=== PATIENT | female | born 1990 | race Caucasian/White ===

== ENCOUNTER 2016-06-13 17:31 | Inpatient (IN) | payer BC, OTHER ==
[2016-06-13 19:07] LABS: APPEARANCE,URINE SLIGHTLY-CLOUDY; BILIRUBIN,URINE NEGATIVE (NEGATIVE); GLUCOSE, URINE NEGATIVE (NEGATIVE); KETONES,URINE TRACE mg/dL (NEGATIVE); LEUKOCYTE ESTERASE,URINE NEGATIVE (NEGATIVE); NITRITE,URINE NEGATIVE (NEGATIVE); PROTEIN,URINE NEGATIVE (NEGATIVE); URINE SPECIFIC GRAVITY 1.015; UROBILINOGEN,URINE NEGATIVE mg/dL (<2.0)
[2016-06-13 19:15] LABS: ABSOLUTE EOSINOPHILS # (AUTO) 0.1 10^3/uL (0.0-0.6); ABSOLUTE LYMPHOCYTES (AUTO) 1.9 10^3/uL (0.5-4.7); ABSOLUTE MONOCYTES (AUTO) 0.9 10^3/uL (0.1-1.4); ABSOLUTE NEUT (AUTO) 11.5 10^3/uL (1.7-8.2); BASOPHILS % (AUTO) 0.2 % (0-2); HEMATOCRIT 38.6 % (36.0-47.0); HEMOGLOBIN 12.9 g/dL (12.0-15.5); HGB HCT DIFFERENCE 0.1; LYMPHOCYTES % (AUTO) 13.3 % (13-45); MEAN CORPUSCULAR HEMOGLOBIN 31.9 pg (27.0-33.4); MEAN CORPUSCULAR HGB CONC 33.4 g/dL (32.0-36.0); MEAN CORPUSCULAR VOLUME 96 fl (80-97); RED BLOOD COUNT 4.04 10^6/uL (3.72-5.28); RED CELL DISTRIBUTION WIDTH 13.6 % (11.5-14.0); SEGMENTED NEUTROPHILS % (AUTO) 79.5 % (42-78); WHITE BLOOD COUNT 14.5 10^3/uL (4.0-10.5)
[2016-06-13 19:31] LABS: URINE BARBITURATES SCREEN NEGATIVE; URINE METHADONE SCREEN NEGATIVE; URINE OPIATES LOW NEGATIVE; URINE PHENCYCLIDINE SCREEN NEGATIVE
[2016-06-13] MEDS ORDERED: DINOPROSTONE 10 MG VAGINAL INSERT.SR ONE (19:41)
--- NOTE | 2016-06-13 20:00 | L&D Flow Sheet ---
LD Flowsheet Datetime Report Generated by CPN: 06/13/2016 20:00 Datetime: 06/13/2016 19:51 NBP Sys/Teresa/Mean (mmHg): 114 (QS system process) : 67 (QS system process) : 85 (QS system process) Pulse: 86 (QS system process) Monitor Interventions for FHR: Ultrasound Adjusted (Christine Henderson, RN) Datetime: 06/13/2016 19:50 Cervical Ripening Agents: Cervidil (Christine CHAPARRITA Henderson) Datetime: 06/13/2016 19:46 I/O Interventions: Up to BR (Christine Henderson RN) Datetime: 06/13/2016 19:00 Pain Scale: 0 (Christine Henderson RN) Pain Presence: None/Denies (Christine Henderson RN) Pain Type: N/A (Christine Henderson RN) Vaginal Bleeding: None (Christine Henderson RN) Level of Consciousness: Fully Conscious (Christine Henderson RN) DTR's/Clonus: DTRs 2+; No Clonus (Christine Henderson RN) Headache: Denies (Christine Henderson RN) Breath Sounds, Left: Clear and Equal (Christine Henderson RN) Breath Sounds, Right: Clear and Equal (Christine Henderson RN) Nausea/Vomiting: Denies (Christine Henderson RN) RUQ Epigastric Pain: Denies (Christine Henderson RN) Datetime: 06/13/2016 18:56 Monitor Interventions for UA: [place] Adjusted (Christine Henderson RN) Communication: Provider Orders Received (Christine Henderson RN) Communication Comments: Orders received to place Cervidil tonight followed by Pitocin and a mike bulb in the morning. (Christine Henderson RN) Datetime: 06/13/2016 18:55 Dilatation (cm): 1.0 (Christine Henderson RN) Effacement (%): 0 (Christine Henderson RN) Station: -3 (Christine Henderson RN) Exam by: Dr. Roger (Christine Henderson RN) Cervix, Position: Posterior (Christine Henderson RN) Datetime: 06/13/2016 18:39 IV/Blood Work: Labs Drawn (Christine Henderson, RN) Datetime: 06/13/2016 18:34 Patient Position/Activity: Left Tilt; Semi-Fowlers (Christine Henderson RN)
[2016-06-13] MEDS ORDERED: RINGERS SOLUTION,LACTATED 300 ML IV ONE (20:08)
[2016-06-13] MEDS ORDERED: OXYTOCIN/NORMAL SALINE 1,000 ML IV PRN (20:08)
[2016-06-13] MEDS ORDERED: DINOPROSTONE 10 MG VAGINAL INSERT.SR PV PRN (20:08)
--- NOTE | 2016-06-13 22:00 | L&D Flow Sheet ---
LD Flowsheet Datetime Report Generated by CPN: 06/13/2016 22:00 Datetime: 06/13/2016 21:00 Monitor Mode: External (Christine Marlatt, RN) Frequency (min): irritability (Christine Marlatt, RN) Quality: Mild (Christine Marlatt, RN) Resting Tone (Palpate): Relaxed (Christine Marlatt, RN) Monitor Mode: External US (Christine Marlatt, RN) FHR Baseline Rate : 145 (Christine Marlatt, RN) Variability: Moderate 6-25 bpm (Christine Marlatt, RN) Accelerations: 15X15 (Christine Marlatt, RN) Datetime: 06/13/2016 20:30 Monitor Mode: External (Christine Marlatt, RN) Frequency (min): x1 (Christine Marlatt, RN) Quality: Mild (Christine Marlatt, RN) Duration (sec): 60 (Christine Marlatt, RN) Resting Tone (Palpate): Relaxed (Christine Marlatt, RN) Monitor Mode: External US (Christine Marlatt, RN) FHR Baseline Rate : 140 (Christine Marlatt, RN) Variability: Moderate 6-25 bpm (Christine Marlatt, RN) Accelerations: 15X15 (Christine Marlatt, RN) Datetime: 06/13/2016 20:00 Monitor Mode: External (Christine Marlatt, RN) Frequency (min): 0 (Christine Marlatt, RN) Resting Tone (Palpate): Relaxed (Christine Marlatt, RN) Monitor Mode: External US (Christine Marlatt, RN) FHR Baseline Rate : 140 (Christine Marlatt, RN) Variability: Moderate 6-25 bpm (Christine Marlatt, RN) Accelerations: 15X15 (Christine Marlatt, RN) Decelerations: None (Christine Marlatt, RN)
[2016-06-13] MEDS ORDERED: ZOLPIDEM TARTRATE 5 MG TABLET ONE (22:53)
[2016-06-14] MEDS: RINGERS SOLUTION,LACTATED 1,000 ML IV PRN ×2 (03:53→16:07)
[2016-06-14] MEDS ORDERED: MISOPROSTOL 0.1 MG TABLET ONE ×2 (07:38→10:09)
--- NOTE | 2016-06-14 08:00 | L&D Flow Sheet ---
LD Flowsheet Datetime Report Generated by CPN: 06/14/2016 08:00 Datetime: 06/14/2016 07:22 Level of Consciousness: Fully Conscious (Arsalan Mathew, SN) DTR's/Clonus: DTRs 1+; No Clonus (Arsalan Mathew, SN) Headache: Denies (Arsalan Mathew, SN) Breath Sounds, Right: Clear and Equal (Arsalan Mathew, SN) Nausea/Vomiting: Denies (Arsalan Mathew, SN) RUQ Epigastric Pain: Denies (Arsalan Mathew, SN) Datetime: 06/14/2016 07:07 Communication Comments: Report received from Braulio Astorga RN. Care assumed (Armida Lims, RN) Datetime: 06/14/2016 07:06 Communication: Report Given to @ LyndaBrent, RN; care relinquished at this time. (Cesia Astorga, RN) Datetime: 06/14/2016 07:00 Monitor Mode: External; Palpation (Cesia Astorga, RN) Frequency (min): Irritability (Cesia Astorga, RN) Quality: Mild (Cesia Astorga, RN) Resting Tone (Palpate): Relaxed (Cesia Astorga, RN) Monitor Mode: External US (Cesia Astorga, RN) FHR Baseline Rate : 135 (Cesia Astorga, RN) Variability: Moderate 6-25 bpm (Cesia Astorga, RN) Accelerations: 15X15 (Cesia , RN) Decelerations: None (Cesia Astorga, RN) Datetime: 06/14/2016 06:43 I/O Interventions: Up to BR (Cesia Field, RN) Datetime: 06/14/2016 06:30 Monitor Mode: External; Palpation ([facility], ) Frequency (min): Irritability ([facility], RN) Quality: Mild ([facility], RN) Resting Tone (Palpate): Relaxed ([facility], RN) Monitor Mode: External US ([facility], RN) FHR Baseline Rate : 130 ([facility], RN) Variability: Moderate 6-25 bpm ([facility], RN) Accelerations: 15X15 ([facility], RN) Decelerations: None ([facility], RN) Datetime: 06/14/2016 06:01 Monitor Mode: External US (Bella Kossmann, RN) FHR Baseline Rate : 135 (Bella Kossmann, RN) Variability: Moderate 6-25 bpm (Bella Kossmann, RN) Accelerations: 15X15 (Bella Kossmann, RN) Decelerations: None (Bella Kossmann, RN) Datetime: 06/14/2016 05:30 Monitor Mode: External; Palpation (Bella Kossmann, RN) Frequency (min): x1 (Bella Kossmann, RN) Quality: Mild (Bella Kossmann, RN) Duration (sec): 60 (Bella Kossmann, RN) Resting Tone (Palpate): Relaxed (Bella Kossmann, RN) Monitor Mode: External US (Bella Kossmann, RN) FHR Baseline Rate : 130 (Bella Kossmann, RN) Variability: Moderate 6-25 bpm (Bella Kossmann, RN) Accelerations: 15X15 (Bella Kossmann, RN) Decelerations: None (Bella Kossmann, RN) Datetime: 06/14/2016 05:00 Monitor Mode: External; Palpation (Cesia Field, RN) Frequency (min): Irritability (Cesia Field, RN) Quality: Mild (Cesia Field, RN) Resting Tone (Palpate): Relaxed (Cesia Field, RN) Monitor Mode: External US (Cesia Field, RN) FHR Baseline Rate : 130 (Cesia Field, RN) Variability: Moderate 6-25 bpm (Cesia Field, RN) Accelerations: 15X15 (Cesia Field, RN) Decelerations: None (Cesia Field, RN) Datetime: 06/14/2016 04:30 Monitor Mode: External; Palpation (Cesia Field, RN) Frequency (min): Irritability (Cesia Field, RN) Quality: Mild (Cesia Field, RN) Resting Tone (Palpate): Relaxed (Cesia Field, RN) Monitor Mode: External US (Cesia Field, RN) FHR Baseline Rate : 130 (Cesia Field, RN) Variability: Moderate 6-25 bpm (Cesia Field, RN) Accelerations: 15X15 (Cesia Field, RN) Decelerations: None (Cesia Field, RN) Datetime: 06/14/2016 04:19 I/O Interventions: Up to BR ([facility], RN) Datetime: 06/14/2016 04:01 Monitor Mode: External; Palpation ([facility], ) Frequency (min): none ([facility], ) Resting Tone (Palpate): Relaxed ([facility], ) Monitor Mode: External US ([facility], ) FHR Baseline Rate : 130 ([facility], ) Variability: Moderate 6-25 bpm ([facility], ) Accelerations: 15X15 ([facility], ) Decelerations: None ([facility], ) Datetime: 06/14/2016 03:35 IV/Blood Work: New IV Bag Hung (Annotations: iv flushed with 10ml of normal saline, iv patent, no evidence of issues.) (Bella Dickinson, RN) Datetime: 06/14/2016 03:30 Monitor Mode: External; Palpation (Bella Lilianaann, RN) Frequency (min): irregular (Bella Lizzysmann, RN) Quality: Mild (Bella Kossmann, RN) Duration (sec): 40-90 (Bella Kossmann, RN) Resting Tone (Palpate): Relaxed (Bella Kossmann, RN) Monitor Mode: External US (Bella Kossmann, RN) FHR Baseline Rate : 135 (Bella Kossmann, RN) Variability: Moderate 6-25 bpm (Bella Kossmann, RN) Accelerations: 15X15 (Bella Kossmann, RN) Decelerations: Late (Bella Kossmann, RN) Datetime: 06/14/2016 03:25 NBP Sys/Teresa/Mean (mmHg): 122 (QS system process) : 80 (QS system process) : 96 (QS system process) Pulse: 85 (QS system process) LaborFlag: Antepartum (QS system process) Datetime: 06/14/2016 03:18 I/O Interventions: Up to BR (Cesia Astorga, RN) Datetime: 06/14/2016 03:00 Monitor Mode: External; Palpation (Cesia Astorga, RN) Frequency (min): x2 (Cesia Astorga, RN) Quality: Mild (Cesia Astorga, RN) Duration (sec): 80-90 (Cesia Astorga, RN) Resting Tone (Palpate): Relaxed (Cesia Astorga, RN) Monitor Mode: External US (Cesia Astorga, RN) FHR Baseline Rate : 135 (Cesia Astorga, RN) Variability: Moderate 6-25 bpm (Cesia , RN) Accelerations: 15X15 (Cesia Astorga, RN) Decelerations: None (Cesia Astorga, RN) Datetime: 06/14/2016 02:30 Monitor Mode: External; Palpation (Cesia Field, RN) Frequency (min): 7-18 (Cesia Field, RN) Quality: Mild (Cesia Field, RN) Duration (sec): 60-90 (Cesia Field, RN) Resting Tone (Palpate): Relaxed (Cesia Field, RN) Monitor Mode: External US (Cesia Field, RN) FHR Baseline Rate : 130 (Cesia Field, RN) Variability: Moderate 6-25 bpm (Cesia Field, RN) Accelerations: 15X15 (Cesia Field, RN) Decelerations: None (Cesia Field, RN) Datetime: 06/14/2016 02:00 Monitor Mode: External; Palpation (Cesia Field, RN) Frequency (min): x1 (Cesia Field, RN) Quality: Mild (Cesia Field, RN) Duration (sec): 80 (Cesia Field, RN) Resting Tone (Palpate): Relaxed (Cesia Field, RN) Monitor Mode: External US (Cesia Field, RN) FHR Baseline Rate : 130 (Cesia Field, RN) Variability: Moderate 6-25 bpm (Cesia Field, RN) Accelerations: 15X15 (Cesia Field, RN) Decelerations: None (Cesia Field, RN) Datetime: 06/14/2016 01:30 Monitor Mode: External; Palpation (Cesia Field, RN) Frequency (min): x1 (Cesia Field, RN) Quality: Mild (Cesia Field, RN) Duration (sec): 60 (Cesia Field, RN) Resting Tone (Palpate): Relaxed (Cesia Field, RN) Monitor Mode: External US (Cesia Field, RN) FHR Baseline Rate : 135 (Cesia Field, RN) Variability: Moderate 6-25 bpm (Cesia Field, RN) Accelerations: 15X15 (Cesia Field, RN) Decelerations: None (Cesia Field, RN) Datetime: 06/14/2016 01:00 Monitor Mode: External; Palpation (Cesia Field, RN) Frequency (min): x1 (Cesia Field, RN) Quality: Mild (Cesia Field, RN) Duration (sec): 110 (Cesia Field, RN) Resting Tone (Palpate): Relaxed (Cesia Field, RN) Monitor Mode: External US (Cesia Field, RN) FHR Baseline Rate : 135 (Cesia Field, RN) Variability: Moderate 6-25 bpm (Cesia Field, RN) Accelerations: 15X15 (Cesia Field, RN) Decelerations: None (Cesia Field, RN) Datetime: 06/14/2016 00:30 Monitor Mode: External; Palpation (Cesia Field, RN) Frequency (min): Irritability (Cesia Field, RN) Quality: Mild (Cesia Field, RN) Resting Tone (Palpate): Relaxed (Cesia Field, RN) Monitor Mode: External US (Cesia Field, RN) FHR Baseline Rate : 135 (Cesia Field, RN) Variability: Moderate 6-25 bpm (Cesia Field, RN) Accelerations: 15X15 (Cesia Field, RN) Decelerations: None (Cesia Field, RN) Datetime: 06/14/2016 00:00 Monitor Mode: External; Palpation (Cesia Field, RN) Frequency (min): Irritability (Cesia Field, RN) Quality: Mild (Cesia Field, RN) Resting Tone (Palpate): Relaxed (Cesia Field, RN) Monitor Mode: External US (Cesia Field, RN) FHR Baseline Rate : 140 (Cesia Field, RN) Variability: Moderate 6-25 bpm (Cesia Field, RN) Accelerations: 15X15 (Cesia Field, RN) Decelerations: None (Cesia Field, RN) Datetime: 06/13/2016 23:30 Monitor Mode: External; Palpation (Cesia Field, RN) Frequency (min): Irritability (Cesia Field, RN) Quality: Mild (Cesia Field, RN) Resting Tone (Palpate): Relaxed (Cesia Field, RN) Monitor Mode: External US (Cesia Field, RN) FHR Baseline Rate : 140 (Cesai Field, RN) Variability: Moderate 6-25 bpm (Cesia Field, RN) Accelerations: 15X15 (Cesia Field, RN) Decelerations: None (Cesia Field, RN) Datetime: 06/13/2016 23:10 Patient Care Comments: Agree with CHAPARRITA Yang previous assessment (Cesia Astorga RN) Datetime: 06/13/2016 23:01 I/O Interventions: Up to BR (Christine Henderson, RN) Datetime: 06/13/2016 23:00 Monitor Mode: External (Christine Henderson, RN) Frequency (min): irritability (Christine Henderson, RN) Quality: Mild (Christine Henderson RN) Resting Tone (Palpate): Relaxed (Christine Henderson RN) Monitor Mode: External US (Christine Henderson, RN) FHR Baseline Rate : 130 (Christine Henderson, RN) Variability: Moderate 6-25 bpm (Christine Henderson, RN) Accelerations: 15X15 (Christine Marlatt, RN) Datetime: 06/13/2016 22:57 Communication: Report Given to @ J. Feild RN (Christine Marlatt, RN) Datetime: 06/13/2016 22:55 Analgesics/Sedatives: Ambien (mg) @ 10 (Christine Marlatt, RN) Datetime: 06/13/2016 22:30 Monitor Mode: External (Christine Marlatt, RN) Frequency (min): irreg (Christine Marlatt, RN) Quality: Mild (Christine Marlatt, RN) Duration (sec): 60-120 (Christine Marlatt, RN) Resting Tone (Palpate): Relaxed (Christine Sarahlatt, RN) Monitor Mode: External US (Christine Sarahlatt, RN) FHR Baseline Rate : 140 (Christine Marlatt, RN) Variability: Moderate 6-25 bpm (Christine Marlatt, RN) Accelerations: 15X15 (Christine Marlatt, RN) Decelerations: None (Christine Marlatt, RN) Datetime: 06/13/2016 22:00 Monitor Mode: External (Christine Marlatt, RN) Frequency (min): irreg (Christine Marlatt, RN) Quality: Mild (Christine Marlatt, RN) Duration (sec): 40-60 (Christine Marlatt, RN) Resting Tone (Palpate): Relaxed (Christine Sarahlatt, RN) Monitor Mode: External US (Christine Sarahlatt, RN) FHR Baseline Rate : 140 (Christine Marlatt, RN) Variability: Moderate 6-25 bpm (Christine Marlatt, RN) Accelerations: 15X15 (Christine Marlatt, RN)
--- NOTE | 2016-06-14 12:00 | L&D Flow Sheet ---
LD Flowsheet Datetime Report Generated by CPN: 06/14/2016 12:00 Datetime: 06/14/2016 11:51 NBP Sys/Teresa/Mean (mmHg): 132 (QS system process) : 88 (QS system process) : 106 (QS system process) Pulse: 94 (QS system process) LaborFlag: Antepartum (QS system process) Datetime: 06/14/2016 11:31 Dilatation (cm): 1.0 (Armida Alejandra, RN) Effacement (%): 0 (Armida Alejandra, RN) Station: -1 (Armida Alejandra, RN) Exam by: Devorah Calvo,RN (Armida Alejandra, RN) Datetime: 06/14/2016 11:29 Patient Care Comments: O2 10L via nonrebreather applied. (Kasandra Calvo, RN) Datetime: 06/14/2016 11:28 Communication: RN at Bedside (Kasandra Calvo, RN) Datetime: 06/14/2016 11:23 Patient Position/Activity: Hands-Knees (Kasandra Calvo, RN) Datetime: 06/14/2016 11:22 Patient Care Comments: LR 500mL bolus started. (Kasandra Calvo, RN) Datetime: 06/14/2016 11:20 NBP Sys/Teresa/Mean (mmHg): 105 (QS system process) : 66 (QS system process) : 78 (QS system process) Pulse: 86 (QS system process) LaborFlag: Antepartum (QS system process) Datetime: 06/14/2016 11:00 Monitor Mode: External; Palpation (Armida Alejandra, RN) Frequency (min): irregular (Armida Alejandra, RN) Quality: Mild (Armida Alejandra, RN) Duration (sec): 60-80 (Armida Alejandra, RN) Resting Tone (Palpate): Relaxed (Armida Alejandra, RN) Monitor Mode: External US (Armida Alejandra, RN) FHR Baseline Rate : 140 (Armida Alejandra, RN) Variability: Moderate 6-25 bpm (Armida Alejandra, RN) Accelerations: 15X15 (Armida Alejandra, RN) Decelerations: None (Armida Alejandra, RN) Datetime: 06/14/2016 10:51 NBP Sys/Teresa/Mean (mmHg): 114 (QS system process) : 75 (QS system process) : 89 (QS system process) Pulse: 94 (QS system process) LaborFlag: Antepartum (QS system process) Datetime: 06/14/2016 10:30 Monitor Mode: External (Arsalan Rodriguesrey, SN) Frequency (min): Irregular (Arsalan Mathew, SN) Quality: Mild (Arsalan Mathew, SN) Duration (sec): 60-80 (Arsalan Mathew, SN) Resting Tone (Palpate): Relaxed (Arsalan Mathew, SN) Monitor Mode: External US (Arsalan Mathew, SN) FHR Baseline Rate : 140 (Arsalan Mathew, SN) Variability: Moderate 6-25 bpm (Arsalan Mathew, SN) Accelerations: 15X15 (Arsalan Mathew, SN) Decelerations: Variable (Arsalan Mathew, SN) Datetime: 06/14/2016 10:22 Cervical Ripening Agents: Cytotec @ 25 (Armida Roberts RN) Medication Comments: PV (Armida Roberts RN) Datetime: 06/14/2016 10:19 NBP Sys/Teresa/Mean (mmHg): 109 (QS system process) : 73 (QS system process) : 86 (QS system process) Pulse: 94 (QS system process) LaborFlag: Antepartum (QS system process)
[2016-06-14] MEDS ORDERED: TERBUTALINE SULFATE INJ/PF 1 MG/1 ML SDV ONE (12:04)
--- NOTE | 2016-06-14 14:00 | L&D Flow Sheet ---
LD Flowsheet Datetime Report Generated by CPN: 06/14/2016 14:00 Datetime: 06/14/2016 13:50 NBP Sys/Teresa/Mean (mmHg): 101 (QS system process) : 58 (QS system process) : 73 (QS system process) Pulse: 101 (QS system process) LaborFlag: Antepartum (QS system process) Datetime: 06/14/2016 13:26 Monitor Mode: External (Arsalan Mathew, SN) Frequency (min): 2-4 (Arsalan Mathew, SN) Quality: Mild (Arsalan Mathew, SN) Duration (sec): 60-80 (Arsalan Mathew, SN) Pattern: Normal: <= 5 Contractions in 10 Minutes (Arsalan Mathew, SN) Resting Tone (Palpate): Relaxed (Arsalan Mathew, SN) Monitor Mode: External US (Arsalan Mathew, SN) FHR Baseline Rate : 145 (Arsalan Mathew, SN) Variability: Moderate 6-25 bpm (Arsalan Mathew, SN) Accelerations: 15X15 (Arsalan Mathew, SN) Decelerations: None (Arsalan Mathew, SN) Datetime: 06/14/2016 13:21 NBP Sys/Teresa/Mean (mmHg): 106 (QS system process) : 54 (QS system process) : 74 (QS system process) Pulse: 106 (QS system process) LaborFlag: Antepartum (QS system process) Datetime: 06/14/2016 13:00 Monitor Mode: External; Palpation (Arsalan Mathew SN) Monitor Mode: External; Palpation (Armida Alejandra, RN) Frequency (min): irregular (Armida Alejandra, RN) Quality: Mild (Arsalan Mathew, SN) Quality: Mild (Armida Alejandra, RN) Duration (sec): 60-80 (Armida Alejandra, RN) Pattern: Normal: <= 5 Contractions in 10 Minutes (Arsalan Mathew, SN) Resting Tone (Palpate): Relaxed (Arsalan Mathew, SN) Resting Tone (Palpate): Relaxed (Armida Alejandra, RN) Monitor Mode: External US (Arsalan Mathew, SN) Monitor Mode: External US (Armida Alejandra, RN) FHR Baseline Rate : 150 (Armida Alejandra, RN) Variability: Moderate 6-25 bpm (Armida Alejandra, RN) Accelerations: 15X15 (Arsalan Mathew, SN) Decelerations: Late (Arsalan Mathew, SN) Datetime: 06/14/2016 12:50 NBP Sys/Teresa/Mean (mmHg): 107 (QS system process) : 58 (QS system process) : 78 (QS system process) Pulse: 112 (QS system process) LaborFlag: Antepartum (QS system process) Datetime: 06/14/2016 12:30 Monitor Mode: External; Palpation (Armida Alejandra, RN) Frequency (min): irregular (Armida Alejandra, RN) Quality: Mild (Armida Alejandra, RN) Duration (sec): 60-120 (Armida Alejandra, RN) Resting Tone (Palpate): Relaxed (Armida Alejanrda, RN) Monitor Mode: External US (Armida Alejandra, RN) FHR Baseline Rate : 150 (Armida Alejandra, RN) Variability: Moderate 6-25 bpm (Armida Alejandra, RN) Accelerations: 15X15 (Armida Alejandra, RN) Decelerations: Late (Armida Alejandra, RN) Datetime: 06/14/2016 12:20 NBP Sys/Teresa/Mean (mmHg): 115 (QS system process) : 63 (QS system process) : 82 (QS system process) Pulse: 123 (QS system process) LaborFlag: Antepartum (QS system process) Datetime: 06/14/2016 12:10 I/O Interventions: Up to BR (Armida Alejandra, RN) Datetime: 06/14/2016 12:07 Tocolytics: Terbutaline 0.25mg Subcutaneous-Pulse Less than 120 (Armida Alejandra, RN) Datetime: 06/14/2016 12:00 Monitor Mode: External; Palpation (Armida Alejandra, RN) Frequency (min): 2-3 (Armida Alejandra, RN) Quality: Mild (Armida Alejandra, RN) Duration (sec): 60-80 (Armida Alejandra, RN) Resting Tone (Palpate): Relaxed (Armida Alejandra, RN) Monitor Mode: External US (Armida Alejandra, RN) FHR Baseline Rate : 150 (Armida Alejandra, RN) Variability: Moderate 6-25 bpm (Armida Alejandra, RN) Accelerations: None (Armida Alejandra, RN) Decelerations: Late (Armida Alejandra, RN)
[2016-06-14] MEDS ORDERED: OXYTOCIN/NORMAL SALINE 20 UNIT/1,000 ML RTUINJ ONE (15:50)
--- NOTE | 2016-06-14 16:00 | L&D Flow Sheet ---
LD Flowsheet Datetime Report Generated by CPN: 06/14/2016 16:00 Datetime: 06/14/2016 15:51 NBP Sys/Teresa/Mean (mmHg): 112 (QS system process) : 67 (QS system process) : 83 (QS system process) Pulse: 104 (QS system process) LaborFlag: Antepartum (QS system process) Datetime: 06/14/2016 15:30 Monitor Mode: External (Arsalan Mathew, SN) Frequency (min): 1-3 (Arsalan Mathew, SN) Quality: Mild (Arsalan Mathew, SN) Duration (sec): 50-80 (Arsalan Mathew, SN) Pattern: Normal: <= 5 Contractions in 10 Minutes (Arsalan Mathew, SN) Resting Tone (Palpate): Relaxed (Arsalan Mathew, SN) Monitor Mode: External US (Arsalan Mathew, SN) FHR Baseline Rate : 145 (Arsalan Mathew, SN) Accelerations: 15X15 (Arsalan Mathew, SN) Decelerations: None (Arsalan Mathew, SN) Datetime: 06/14/2016 15:20 NBP Sys/Teresa/Mean (mmHg): 139 (QS system process) : 61 (QS system process) : 83 (QS system process) Pulse: 106 (QS system process) LaborFlag: Antepartum (QS system process) Datetime: 06/14/2016 15:00 Monitor Mode: External; Palpation (Arsalan Mathew, SN) Frequency (min): 1-3 (Arsalan Mathew, SN) Quality: Mild (Arsalan Mathew, SN) Duration (sec): 50-80 (Arsalan Mathew, SN) Pattern: Normal: <= 5 Contractions in 10 Minutes (Arsalan Mathew, SN) Resting Tone (Palpate): Relaxed (Arsalan Mathew, SN) Monitor Mode: External US (Arsalan Mathew, SN) FHR Baseline Rate : 145 (Arsalan Mathew, SN) Variability: Moderate 6-25 bpm (Arsalan Mathew, SN) Accelerations: 15X15 (Arsalan Mathew, SN) Decelerations: Early (Arsalan Mathew, SN) Datetime: 06/14/2016 14:50 NBP Sys/Teresa/Mean (mmHg): 113 (QS system process) : 91 (QS system process) : 99 (QS system process) Pulse: 109 (QS system process) LaborFlag: Antepartum (QS system process) Datetime: 06/14/2016 14:30 Monitor Mode: External; Palpation (Armida Roberts RN) Frequency (min): 1-2 (Armida Roberts RN) Quality: Mild/Moderate (Armida Alejandra, RN) Duration (sec): 40-80 (Armida Alejandra, RN) Resting Tone (Palpate): Relaxed (Armida Alejandra, RN) Monitor Mode: External US (Armida Alejandra, RN) FHR Baseline Rate : 145 (Armida Alejandra, RN) Variability: Moderate 6-25 bpm (Armida Alejandra, RN) Accelerations: 15X15 (Armida Alejandra, RN) Decelerations: None (Armida Alejandra, RN) Datetime: 06/14/2016 14:20 NBP Sys/Teresa/Mean (mmHg): 111 (QS system process) : 72 (QS system process) : 87 (QS system process) Pulse: 105 (QS system process) LaborFlag: Antepartum (QS system process) Datetime: 06/14/2016 14:17 Patient Position/Activity: Birthing Ball (Armida Alejandra, RN) Datetime: 06/14/2016 14:10 I/O Interventions: Up to BR (Armida Alejandra, RN) Datetime: 06/14/2016 14:00 Monitor Mode: External; Palpation (Armida Alejandra, RN) Frequency (min): 2-4 (Armida Alejandra, RN) Quality: Mild/Moderate (Armida Alejandra, RN) Duration (sec): 60-80 (Armida Alejandra, RN) Resting Tone (Palpate): Relaxed (Armida Alejandra, RN) Monitor Mode: External US (Armida Alejandra, RN) FHR Baseline Rate : 150 (Armida Alejandra, RN) Variability: Moderate 6-25 bpm (Armida Alejandra, RN) Accelerations: 15X15 (Armida Alejandra, RN) Decelerations: None (Armida Alejandra, RN)
--- NOTE | 2016-06-14 18:00 | L&D Flow Sheet ---
LD Flowsheet Datetime Report Generated by CPN: 06/14/2016 18:00 Datetime: 06/14/2016 17:50 NBP Sys/Teresa/Mean (mmHg): 127 (QS system process) : 76 (QS system process) : 96 (QS system process) Pulse: 83 (QS system process) LaborFlag: Antepartum (QS system process) Datetime: 06/14/2016 17:30 Monitor Mode: External (Armida Alejandra, RN) Frequency (min): 2-3 (Armida Alejandra, RN) Quality: Mild (Armida Alejandra, RN) Duration (sec): 60-80 (Armida Alejandra, RN) Resting Tone (Palpate): Relaxed (Armida Alejandra, RN) Monitor Mode: External US (Armida Alejandra, RN) FHR Baseline Rate : 140 (Armida Alejandra, RN) Variability: Moderate 6-25 bpm (Armida Alejandra, RN) Accelerations: 15X15 (Armida Alejandra, RN) Decelerations: None (Armida Alejandra, RN) Datetime: 06/14/2016 17:22 I/O Interventions: Up to BR (Armida Alejandra, RN) Datetime: 06/14/2016 17:20 NBP Sys/Teresa/Mean (mmHg): 115 (QS system process) : 72 (QS system process) : 89 (QS system process) Pulse: 95 (QS system process) LaborFlag: Antepartum (QS system process) Datetime: 06/14/2016 17:15 Monitor Mode: External; Palpation (Armida Alejandra, RN) Frequency (min): 2-3 (Armida Alejandra, RN) Quality: Mild (Armida Alejandra, RN) Duration (sec): 60-80 (Armida Alejandra, RN) Resting Tone (Palpate): Relaxed (Armida Alejandra, RN) Monitor Mode: External US (Armida Alejandra, RN) FHR Baseline Rate : 145 (Armida Alejandra, RN) Variability: Moderate 6-25 bpm (Armida Alejandra, RN) Accelerations: 15X15 (Armida Alejandra, RN) Decelerations: Late (Armida Alejandra, RN) Datetime: 06/14/2016 17:12 Patient Position/Activity: Right Extreme (Armida Alejandra, RN) Patient Care Comments: patient position changed (Armida Alejandra, RN) Datetime: 06/14/2016 17:00 Monitor Mode: External; Palpation (Armida Alejandra, RN) Frequency (min): 2-3 (Armida Alejandra, RN) Quality: Mild (Armida Alejandra, RN) Duration (sec): 60-80 (Armida Alejandra, RN) Resting Tone (Palpate): Relaxed (Armida Alejandra, RN) Monitor Mode: External US (Armida Alejandra, RN) FHR Baseline Rate : 145 (Armida Alejandra, RN) Variability: Moderate 6-25 bpm (Armida Alejandra, RN) Accelerations: 15X15 (Armida Alejandra, RN) Decelerations: None (Armida Alejandra, RN) Datetime: 06/14/2016 16:50 NBP Sys/Teresa/Mean (mmHg): 128 (QS system process) : 77 (QS system process) : 98 (QS system process) Pulse: 84 (QS system process) LaborFlag: Antepartum (QS system process) Datetime: 06/14/2016 16:45 Monitor Mode: External (Arsalan Mathew, SN) Frequency (min): 2-3 (Arsalan Mathew, SN) Quality: Mild (Arsalan Mathew, SN) Duration (sec): 60-70 (Arsalan Mathew, SN) Pattern: Normal: <= 5 Contractions in 10 Minutes (Arsalan Mathew, SN) Resting Tone (Palpate): Relaxed (Arsalan Mathew, SN) Monitor Mode: External US (Arsalan Mathew, SN) FHR Baseline Rate : 145 (Arsalan Mathew, SN) Variability: Moderate 6-25 bpm (Arsalan Mathew, SN) Accelerations: 15X15 (Arsalan Mathew, SN) Decelerations: None (Arsalan Mathew, SN) Datetime: 06/14/2016 16:30 Monitor Mode: External (Arsalan Mathew, SN) Frequency (min): 2-3 (Arsalan Mathew, SN) Quality: Mild (Arsalan Mathew, SN) Duration (sec): 40-70 (Arsalan Mathew, SN) Pattern: Normal: <= 5 Contractions in 10 Minutes (Arsalan Mathew, SN) Resting Tone (Palpate): Relaxed (Arsalan Mathew, SN) FHR Baseline Rate : 150 (Arsalan Mathew, SN) Variability: Moderate 6-25 bpm (Arsalan Mathew, SN) Accelerations: 15X15 (Arsalan Mathew, SN) Decelerations: None (Arsalan Mathew, SN) Datetime: 06/14/2016 16:20 NBP Sys/Teresa/Mean (mmHg): 122 (QS system process) : 82 (QS system process) : 96 (QS system process) Pulse: 78 (QS system process) LaborFlag: Antepartum (QS system process) Datetime: 06/14/2016 16:15 Monitor Mode: External (Armida Alejandra, RN) Frequency (min): 2-3 (Armida Alejandra, RN) Quality: Mild (Armida Alejandra, RN) Duration (sec): 60-80 (Armida Alejandra, RN) Resting Tone (Palpate): Relaxed (Armida Alejandra, RN) Monitor Mode: External US (Armida Alejandra, RN) FHR Baseline Rate : 145 (Armida Alejandra, RN) Variability: Moderate 6-25 bpm (Armida Alejandra, RN) Accelerations: 15X15 (Armida Alejandra, RN) Decelerations: None (Armida Alejandra, RN) Datetime: 06/14/2016 16:06 Pitocin (milliunit): Pitocin Started (milliunits) @ 2 (Armida Roberts RN)
--- NOTE | 2016-06-14 20:00 | L&D Flow Sheet ---
LD Flowsheet Datetime Report Generated by CPN: 06/14/2016 20:00 Datetime: 06/14/2016 19:50 NBP Sys/Teresa/Mean (mmHg): 125 (QS system process) : 82 (QS system process) : 98 (QS system process) Pulse: 78 (QS system process) LaborFlag: Antepartum (QS system process) Datetime: 06/14/2016 19:30 Stage of : Antepartum (Ofelia Hoichijohanna RN) Respirations: 16 (Ofelia Errichiello, RN) Monitor Mode: External (Ofelia Brown RN) Frequency (min): 2-3 (Ofelia Brown RN) Quality: Mild (Ofelia Brown RN) Duration (sec): 50-70 (Ofelia Brown RN) Resting Tone (Palpate): Relaxed (Ofelia Brown RN) Monitor Mode: External US (Ofelia Brown RN) Monitor Interventions for FHR: Ultrasound Adjusted (Ofelia Brown RN) FHR Baseline Rate : 145 (Ofelia Brown RN) FHR Baseline Changes: No Baseline Change (Ofelia Brown RN) Variability: Moderate 6-25 bpm (Ofelia Brown RN) Accelerations: 15X15 (Ofelia Brown RN) Decelerations: None (Ofelia Brown RN) Pain Scale: 2 (Ofelia Brown RN) Pain Presence: Intermittent (Ofelia Brown RN) Pain Type: Contraction (Ofelia Brown RN) Pain Location: Abdomen (Ofelia Brown RN) Pain Goal: 1 (Ofelia Brown RN) Pain Relief Measures: Comfort Measures (Ofelia Brown RN) Pain Coping: Talking Through Contractions (Ofelia Brown RN) Pain Assessment Comments: with UCs (Ofelia Brown RN) Level of Consciousness: Fully Conscious (Ofelia Brown RN) Level of Consciousness: Fully Conscious (Ofelia Brown RN) DTR's/Clonus: DTRs 2+; No Clonus (Ofelia Brown RN) DTR's/Clonus: DTRs 2+; No Clonus (Ofelia Brown RN) Headache: Denies (Ofelia Brown RN) Headache: Denies (Ofelia Brown RN) Breath Sounds, Left: Clear and Equal (Ofelia Brown RN) Breath Sounds, Left: Clear and Equal (Ofelia Brown RN) Breath Sounds, Right: Clear and Equal (Ofelia Brown RN) Breath Sounds, Right: Clear and Equal (Ofelia Brown RN) Nausea/Vomiting: Denies (Ofelia Brown RN) Nausea/Vomiting: Denies (Ofelia Brown RN) RUQ Epigastric Pain: Denies (Ofelia Brown RN) RUQ Epigastric Pain: Denies (Ofelia Brown RN) Pitocin (milliunit): Pitocin Remains (milliunits) @ (Annotations: 4) (Ofelia Brown RN) Patient Position/Activity: Left Tilt; Semi-Fowlers (Ofelia Brown RN) Comfort Measures: Breathing/Relaxation; Coaching; Family Support (Ofelia Brown RN) Communication: RN at Bedside; RN Reviewed Strip (Ofelia Brown RN) LaborFlag: Antepartum (QS system process) Datetime: 06/14/2016 19:24 Dilatation (cm): 1.0 (Armida Roberts RN) Effacement (%): 0 (Armida Roberts RN) Station: -3 (Armida Roberts RN) Exam by: Chance Morris RN (Armida Roberts RN) Cervix, Position: Posterior (Armida Roberts RN) Datetime: 06/14/2016 19:23 Communication Comments: Report to K. Fore, RN. Care relinquished (Armida Alejandra, RN) Datetime: 06/14/2016 19:21 I/O Interventions: Up to BR (Ofelia Errichiello, RN) Datetime: 06/14/2016 19:20 NBP Sys/Teresa/Mean (mmHg): 125 (QS system process) : 78 (QS system process) : 92 (QS system process) Pulse: 107 (QS system process) LaborFlag: Antepartum (QS system process) Datetime: 06/14/2016 19:15 Monitor Mode: External (Armida Alejandra, RN) Frequency (min): 1-2 (Armida Alejandra, RN) Quality: Mild/Moderate (Armida Alejandra, RN) Duration (sec): 60-80 (Armida Alejandra, RN) Resting Tone (Palpate): Relaxed (Armida Alejandra, RN) Monitor Mode: External US (Armida Alejandra, RN) FHR Baseline Rate : 145 (Armida Alejandra, RN) Variability: Moderate 6-25 bpm (Armida Alejandra, RN) Accelerations: 15X15 (Armida Alejandra, RN) Decelerations: None (Armida Alejandra, RN) Datetime: 06/14/2016 19:00 Monitor Mode: External (Armida Alejandra, RN) Frequency (min): 1-2 (Armida Alejandra, RN) Quality: Mild/Moderate (Armida Alejandra, RN) Duration (sec): 50-80 (Armida Alejandra, RN) Resting Tone (Palpate): Relaxed (Armida Aljeandra, RN) Monitor Mode: External US (Armida Alejandra, RN) FHR Baseline Rate : 145 (Armida Alejandra, RN) Variability: Moderate 6-25 bpm (Armida Alejandra, RN) Accelerations: 15X15 (Armida Alejandra, RN) Decelerations: None (Armida Alejandra, RN) Datetime: 06/14/2016 18:50 NBP Sys/Teresa/Mean (mmHg): 114 (QS system process) : 68 (QS system process) : 84 (QS system process) Pulse: 81 (QS system process) LaborFlag: Antepartum (QS system process) Datetime: 06/14/2016 18:45 Monitor Mode: External (Armida Alejandra, RN) Frequency (min): 2 (Armida Alejandra, RN) Quality: Mild/Moderate (Armida Alejandra, RN) Duration (sec): 60-80 (Armida Alejandra, RN) Resting Tone (Palpate): Relaxed (Armida Alejandra, RN) Monitor Mode: External US (Armida Alejandra, RN) FHR Baseline Rate : 145 (Armida Alejandra, RN) Variability: Moderate 6-25 bpm (Armida Alejandra, RN) Accelerations: 15X15 (Armida Alejandra, RN) Decelerations: None (Armida Alejandra, RN) Datetime: 06/14/2016 18:30 Monitor Mode: External (Armida Alejandra, RN) Frequency (min): 1-2 (Armida Alejandra, RN) Quality: Mild/Moderate (Armida Alejandra, RN) Duration (sec): 50-90 (Armida Alejandra, RN) Resting Tone (Palpate): Relaxed (Armida Alejandra, RN) Monitor Mode: External US (Armida Alejandra, RN) FHR Baseline Rate : 140 (Armida Alejandra, RN) Variability: Moderate 6-25 bpm (Armida Alejandra, RN) Accelerations: 15X15 (Armida Alejandra, RN) Decelerations: None (Armida Alejandra, RN) Datetime: 06/14/2016 18:21 NBP Sys/Teresa/Mean (mmHg): 106 (QS system process) : 70 (QS system process) : 84 (QS system process) Pulse: 103 (QS system process) LaborFlag: Antepartum (QS system process) Datetime: 06/14/2016 18:15 Monitor Mode: External (Armida Alejandra, RN) Frequency (min): 2 (Armida Alejandra, RN) Quality: Mild (Armida Alejandra, RN) Duration (sec): 60-80 (Armida Alejandra, RN) Resting Tone (Palpate): Relaxed (Armida Alejandra, RN) Monitor Mode: External US (Armida Alejandra, RN) FHR Baseline Rate : 145 (Armida Alejandra, RN) Variability: Moderate 6-25 bpm (Armida Alejandra, RN) Accelerations: 15X15 (Armida Alejandra, RN) Decelerations: None (Armida Alejandra, RN) Datetime: 06/14/2016 18:09 I/O Interventions: Up to BR (Armida Alejandra, RN) Datetime: 06/14/2016 18:00 Monitor Mode: External; Palpation (Armida Alejandra, RN) Frequency (min): 2-3 (Armida Lims, RN) Quality: Mild (Armida Lims, RN) Duration (sec): 60-80 (Armida Roberts, RN) Resting Tone (Palpate): Relaxed (Armida Roberts, RN) Monitor Mode: External US (Armida Roberts, RN) FHR Baseline Rate : 150 (Armida Roberts, RN) Variability: Moderate 6-25 bpm (Armidaabhijeet Lims, RN) Accelerations: 15X15 (Armida Alejandra, RN) Decelerations: None (Armida Roberts, RN) Pitocin (milliunit): Pitocin Increased to (milliunits) @ 4 (Armida Roberts, RN)
--- NOTE | 2016-06-14 22:00 | L&D Flow Sheet ---
LD Flowsheet Datetime Report Generated by CPN: 06/14/2016 22:00 Datetime: 06/14/2016 20:39 Maternal Comments: Monitors turned off and disconnected as pt prepares to shower and ambulate. (Ofelia Hoichiello, RN) Datetime: 06/14/2016 20:30 Stage of : Antepartum (Ofelia Brown RN) Monitor Mode: External (Ofelia Brown RN) Monitor Interventions for UA: [place] Adjusted (Ofelia Brown RN) Frequency (min): 1.5-3 (Ofelia Brown RN) Quality: Mild (Ofelia Brown RN) Duration (sec): 50-90 (Ofelia Brown RN) Resting Tone (Palpate): Relaxed (Ofelia Brown RN) Monitor Mode: External US (Ofelia Brown RN) Monitor Interventions for FHR: Ultrasound Adjusted (Ofelia Brown RN) FHR Baseline Rate : 145 (Ofelia Brown RN) FHR Baseline Changes: No Baseline Change (Ofelia Brown RN) Variability: Moderate 6-25 bpm (Ofelia Brown RN) Accelerations: 15X15 (Ofelia Brown RN) Decelerations: None (Ofelia Brown RN) Communication: RN at Bedside; RN Reviewed Strip (Ofelia Brown RN) Datetime: 06/14/2016 20:21 NBP Sys/Teresa/Mean (mmHg): 129 (QS system process) : 81 (QS system process) : 101 (QS system process) Pulse: 85 (QS system process) LaborFlag: Antepartum (QS system process) Datetime: 06/14/2016 20:20 Pitocin (milliunit): Pitocin Discontinued (Ofelia Brown RN) Datetime: 06/14/2016 20:17 Communication Comments: This RN and Dr Gorman at b/s. Pt visibly upset with failure to progress thus far in induction, POC discussed extensively, orders received to discontinue pitocin, allow pt to eat, shower, ambulate around unit and place Cervidil tonight. (Ofelia Brown RN) Datetime: 06/14/2016 20:15 Stage of : Antepartum (Ofelia Brown RN) Monitor Mode: External (Ofelia Brown RN) Frequency (min): 1.5-3 (Ofelia Brown RN) Quality: Mild (Ofelia Brown RN) Duration (sec): 50-80 (Ofelia Brown RN) Resting Tone (Palpate): Relaxed (Ofelia Brown RN) Monitor Mode: External US (Ofelia Brown RN) Monitor Interventions for FHR: Ultrasound Adjusted (Ofelia Brown RN) FHR Baseline Rate : 140 (Ofelia Brown RN) FHR Baseline Changes: No Baseline Change (Ofelia Brown RN) Variability: Moderate 6-25 bpm (Ofelia Brown RN) Accelerations: 15X15 (Ofelia Brown RN) Decelerations: None (Ofelia Brown RN) Communication: RN at Bedside; RN Reviewed Strip (Ofelia Brown RN) Datetime: 06/14/2016 20:00 Stage of : Antepartum (Ofelia Brown RN) Monitor Mode: External (Ofelia Brown RN) Monitor Interventions for UA: [place] Adjusted (Ofelia Brown RN) Frequency (min): 2-2.5 (Ofelia Brown RN) Quality: Mild (Ofelia Brown RN) Duration (sec): 50-80 (Ofelia Brown RN) Resting Tone (Palpate): Relaxed (Ofelia Brown RN) Monitor Mode: External US (Ofelia Brown RN) Monitor Interventions for FHR: Ultrasound Adjusted (Ofelia Brown RN) FHR Baseline Rate : 145 (Ofelia Brown RN) FHR Baseline Changes: No Baseline Change (Ofelia Brown RN) Variability: Moderate 6-25 bpm (Ofelia Brown RN) Accelerations: 15X15 (Ofelia Brown RN) Decelerations: None (Ofelia Brown RN) Patient Position/Activity: Left Tilt; Semi-Fowlers (Ofelia Brown RN) Communication: RN Reviewed Strip (Ofelia Brown RN)
[2016-06-14] MEDS ORDERED: DINOPROSTONE 10 MG VAGINAL INSERT.SR PV PRN (22:10)
[2016-06-14] MEDS ORDERED: ZOLPIDEM TARTRATE 5 MG TABLET PO ONE (22:15)
[2016-06-14] MEDS ORDERED: DINOPROSTONE 10 MG VAGINAL INSERT.SR ONE (22:17)
[2016-06-14] MEDS ORDERED: ZOLPIDEM TARTRATE 5 MG TABLET ONE (22:17)
--- NOTE | 2016-06-15 08:00 | L&D Flow Sheet ---
LD Flowsheet Datetime Report Generated by CPN: 06/15/2016 08:00 Datetime: 06/15/2016 07:42 Level of Consciousness: Fully Conscious (Arsalan Mathew, SN) DTR's/Clonus: DTRs 1+ (Arsalan Mathew, SN) Headache: Denies (Arsalan Mathew, SN) Breath Sounds, Right: Clear and Equal (Arsalan Mathew, SN) Nausea/Vomiting: Denies (Arsalan Mathew, SN) RUQ Epigastric Pain: Denies (Arsalan Mathew, SN) Datetime: 06/15/2016 07:15 Communication Comments: Report given to Lynda Roberts RN, care relinquished at this time. (Ofelia Brown RN) Datetime: 06/15/2016 07:00 Stage of : Antepartum (Ofelia Brown RN) Monitor Mode: External (Ofelia Brown RN) Frequency (min): 2-7 (Ofelia Brown RN) Quality: Mild (Ofelia Brown RN) Duration (sec): 40-70 (Ofelia Brown RN) Resting Tone (Palpate): Relaxed (Ofelia Brown RN) Monitor Mode: External US (Ofelia Brown RN) FHR Baseline Rate : 145 (Ofelia Brown RN) FHR Baseline Changes: No Baseline Change (Ofelia Brown RN) Variability: Moderate 6-25 bpm (Ofelia Brown RN) Accelerations: 15X15 (Ofelia Brown RN) Decelerations: None (Ofelia Brown RN) Pain Presence: None/Denies (Ofelia Brown RN) Communication: RN Reviewed Strip (Ofelia Brown RN) LaborFlag: Antepartum (QS system process) Datetime: 06/15/2016 06:55 I/O Interventions: Up to BR (Ofelia Brown RN) Datetime: 06/15/2016 06:30 Stage of : Antepartum (Ofelia Brown RN) Monitor Mode: External (Ofelia Brown RN) Frequency (min): occ (Ofelia Brown RN) Quality: Mild (Ofelia Bronw RN) Resting Tone (Palpate): Relaxed (Ofelia Brown RN) Monitor Mode: External US (Ofelia Brown RN) FHR Baseline Rate : 145 (Ofelia Brown RN) FHR Baseline Changes: No Baseline Change (Ofelia Brown RN) Variability: Moderate 6-25 bpm (Ofelia Brown RN) Accelerations: 15X15 (Ofelia Brown RN) Decelerations: None (Ofelia Brown RN) Pain Presence: None/Denies (Ofelia Brown RN) Communication: RN at Bedside; RN Reviewed Strip (Ofelia Brown RN) LaborFlag: Antepartum (QS system process) Datetime: 06/15/2016 06:28 Communication Comments: Call placed to Dr Gorman r/t Cervidil falling out and latest SVE. Orders received to let pt rest, eat breakfast and shower. POC to be discussed after. (Ofelia Brown, CHAPARRITA) Datetime: 06/15/2016 06:27 Dilatation (cm): 1.0 (Ofelia Brown RN) Effacement (%): 50 (Ofelia Brown RN) Station: -2 (Ofelia Brown RN) Exam by: C Fore RN (Ofelia Brown RN) Datetime: 06/15/2016 06:25 Maternal Comments: Pt called to say cervidil fell out after use of BR. (Ofelia Brown RN) Datetime: 06/15/2016 06:20 I/O Interventions: Up to BR (Ofelia Brown RN) Datetime: 06/15/2016 06:00 Stage of : Antepartum (Ofelia Brown RN) Monitor Mode: External (Ofelia Brown RN) Monitor Interventions for UA: [place] Adjusted (Ofelia Brown RN) Frequency (min): x3 (Ofelia Brown RN) Quality: Mild (Ofelia Brown RN) Duration (sec): 50-90 (Ofelia Brown RN) Resting Tone (Palpate): Relaxed (Ofelia Brown RN) Monitor Mode: External US (Ofelia Brown RN) FHR Baseline Rate : 135 (Ofelia Brown RN) FHR Baseline Changes: No Baseline Change (Ofelia Brown RN) Variability: Moderate 6-25 bpm (Ofelia Brown RN) Accelerations: 15X15 (Ofelia Brown RN) Decelerations: None (Ofelia Brown RN) Pain Coping: Sleeping (Ofelia Brown RN) Communication: RN Reviewed Strip (Ofelia Brown RN) Datetime: 06/15/2016 05:30 Stage of : Antepartum (Ofelia Brown RN) Monitor Mode: External (Ofelia Brown RN) Monitor Interventions for UA: [place] Adjusted (Ofelia Brown RN) Frequency (min): 2-4 (Ofelia Brown RN) Quality: Mild (Ofelia Brown RN) Duration (sec): 40-120 (Ofelia Brown RN) Resting Tone (Palpate): Relaxed (Ofelia Brown RN) Monitor Mode: External US (Ofelia Brown RN) Monitor Interventions for FHR: Ultrasound Adjusted (Ofelia Brown RN) FHR Baseline Rate : 145 (Ofelia Brown RN) FHR Baseline Changes: No Baseline Change (Ofelia Brown RN) Variability: Moderate 6-25 bpm (Ofelia Brown RN) Accelerations: 15X15 (Ofelia Brown RN) Decelerations: None (Ofelia Brown RN) Pain Coping: Sleeping (Ofelia Brown RN) Communication: RN Reviewed Strip (Ofelia Brown RN) Datetime: 06/15/2016 05:11 I/O Interventions: Up to BR (Ofelia Brown RN) Datetime: 06/15/2016 05:00 Stage of : Antepartum (Ofelia Brown RN) Monitor Mode: External (Ofelia Brown RN) Monitor Interventions for UA: [place] Adjusted (Ofelia Brown RN) Frequency (min): x2 (Ofelia Brown RN) Quality: Mild (Ofelia Brown RN) Duration (sec): 50-90 (Ofelia Brown RN) Resting Tone (Palpate): Relaxed (Ofelia Brown RN) Monitor Mode: External US (Ofelia Brown RN) Monitor Interventions for FHR: Ultrasound Adjusted (Ofelia Brown RN) FHR Baseline Rate : 145 (Ofelia Brown RN) FHR Baseline Changes: No Baseline Change (Ofelia Brown RN) Variability: Moderate 6-25 bpm (Ofelia Brown RN) Accelerations: 15X15 (Ofelia Brown RN) Decelerations: None (Ofelia Brown RN) Pain Coping: Sleeping (Ofelia Brown RN) Communication: RN Reviewed Strip (Ofelia Brown RN) Datetime: 06/15/2016 04:30 Stage of : Antepartum (Ofelia Brown RN) Monitor Mode: External (Ofelia Brown RN) Monitor Interventions for UA: [place] Adjusted (Ofelia Brown RN) Frequency (min): occ (Ofelia Brown RN) Quality: Mild (Ofelia Brown RN) Resting Tone (Palpate): Relaxed (Ofelia Brown RN) Monitor Mode: External US (Ofelia Brown RN) Monitor Interventions for FHR: Ultrasound Adjusted (Ofelia Brown RN) FHR Baseline Rate : 140 (Ofelia Brown RN) FHR Baseline Changes: No Baseline Change (Ofelai Brown RN) Variability: Moderate 6-25 bpm (Ofelia Brown RN) Accelerations: 15X15 (Ofelia Brown RN) Decelerations: None (Ofelia Brown RN) Pain Coping: Sleeping (Ofelia Brown RN) Communication: RN Reviewed Strip (Ofelia Brown RN) Datetime: 06/15/2016 04:24 NBP Sys/Teresa/Mean (mmHg): 119 (QS system process) : 78 (QS system process) : 92 (QS system process) Pulse: 82 (QS system process) IV/Blood Work: New IV Bag Hung (Ofelia Brown RN) LaborFlag: Antepartum (QS system process) Datetime: 06/15/2016 04:19 I/O Interventions: Up to BR (Ofelia Brown RN) Datetime: 06/15/2016 04:00 Stage of : Antepartum (Ofelia Brown RN) Monitor Mode: External (Ofelia Brown RN) Frequency (min): occ (Ofelia Brown RN) Quality: Mild (Ofelia Brown RN) Duration (sec): 40-70 (fOelia Brown RN) Resting Tone (Palpate): Relaxed (Ofelia Brown RN) Monitor Mode: External US (Ofelia Brown RN) Monitor Interventions for FHR: Ultrasound Adjusted (Ofelia Brown RN) FHR Baseline Rate : 135 (Ofelia Brown RN) FHR Baseline Changes: No Baseline Change (Ofelia Brown RN) Variability: Moderate 6-25 bpm (Ofelia Brown RN) Accelerations: 15X15 (Ofelia Brown RN) Decelerations: None (Ofelia Brown RN) Pain Coping: Sleeping (Ofelia Brown RN) Communication: RN Reviewed Strip (Ofelia Brown RN) Datetime: 06/15/2016 03:30 Stage of : Antepartum (Ofelia Brown RN) Monitor Mode: External (Ofelia Brown RN) Monitor Interventions for UA: [place] Adjusted (Ofelia Brown RN) Frequency (min): occ (Ofelia Brown RN) Quality: Mild (Ofelia Brown RN) Duration (sec): 40-60 (Ofelia Brown RN) Resting Tone (Palpate): Relaxed (Ofelia Brown RN) Monitor Mode: External US (Ofelia Brown RN) Monitor Interventions for FHR: Ultrasound Adjusted (Ofelia Brown RN) FHR Baseline Rate : 135 (Ofelia Brown RN) FHR Baseline Changes: No Baseline Change (Ofelia Brown RN) Variability: Moderate 6-25 bpm (Ofelia Brown RN) Accelerations: 15X15 (Ofelia Brown RN) Decelerations: None (Ofelia Brown RN) Pain Presence: None/Denies (Ofelia Brown RN) Communication: RN at Bedside; RN Reviewed Strip (Ofelia Brown RN) LaborFlag: Antepartum (QS system process) Datetime: 06/15/2016 03:04 I/O Interventions: Up to BR (Ofelia Brown RN) Datetime: 06/15/2016 03:00 Stage of : Antepartum (Ofelia Brown RN) Monitor Mode: External (Ofelia Brown RN) Frequency (min): x3 (Ofelia Brown RN) Quality: Mild (Ofelia Brown RN) Duration (sec): 50-100 (Ofelia Brown RN) Resting Tone (Palpate): Relaxed (Ofelia Brown RN) Monitor Mode: External US (Ofelia Brown RN) FHR Baseline Rate : 135 (Ofelia Brown RN) FHR Baseline Changes: No Baseline Change (Ofelia Brown RN) Variability: Moderate 6-25 bpm (Ofelia Brown RN) Accelerations: 15X15 (Ofelia Brown RN) Decelerations: None (Ofelia Brown RN) Pain Coping: Sleeping (Ofelia Brown RN) Communication: RN Reviewed Strip (Ofelia Brown RN) Datetime: 06/15/2016 02:30 Stage of : Antepartum (Ofelia Brown RN) Monitor Mode: External (Ofelia Brown RN) Frequency (min): occ (Ofelia Brown RN) Quality: Mild (Ofelia Brown RN) Duration (sec): 40-50 (Ofelia Brown RN) Resting Tone (Palpate): Relaxed (Ofelia Brown RN) Monitor Mode: External US (Ofelia Brown RN) Monitor Interventions for FHR: Ultrasound Adjusted (Ofelia Brown RN) FHR Baseline Rate : 135 (Ofelia Brown RN) FHR Baseline Changes: No Baseline Change (Ofelia Brown RN) Variability: Moderate 6-25 bpm (Ofelia Brown RN) Accelerations: 15X15 (Ofelia Brown RN) Decelerations: None (Ofelia Brown RN) Pain Coping: Sleeping (Ofelia Brown RN) Communication: RN Reviewed Strip (Ofelia Brown RN) Datetime: 06/15/2016 02:00 Stage of : Antepartum (Ofelia Brown RN) Monitor Mode: External (Ofelia Brown RN) Monitor Interventions for UA: [place] Adjusted (Ofelia Brown RN) Frequency (min): 3-7 (Ofelia Brown RN) Quality: Mild (Ofelia Brown RN) Duration (sec): 40-80 (Ofelia Brown RN) Resting Tone (Palpate): Relaxed (Ofelia Brown RN) Monitor Mode: External US (Ofelia Brown RN) Monitor Interventions for FHR: Ultrasound Adjusted (Ofelia Brown RN) FHR Baseline Rate : 135 (Ofelia Brown RN) FHR Baseline Changes: No Baseline Change (Ofelia Brown RN) Variability: Moderate 6-25 bpm (Ofelia Brown RN) Accelerations: 15X15 (Ofelia Brown RN) Decelerations: None (Oeflia Brown RN) Pain Coping: Sleeping (Ofelia Brown RN) Communication: RN at Bedside; RN Reviewed Strip (Ofelia Brown RN) Datetime: 06/15/2016 01:30 Stage of : Antepartum (Ofelia Brown RN) Monitor Mode: External (Ofelia Brown RN) Monitor Interventions for UA: [place] Adjusted (Ofelia Brown RN) Frequency (min): 3-7 (Ofelia Brown RN) Quality: Mild (Ofelia Brown RN) Duration (sec): 50-70 (Ofelia Brown RN) Resting Tone (Palpate): Relaxed (Ofelia Brown RN) Monitor Mode: External US (Ofelia Brown RN) Monitor Interventions for FHR: Ultrasound Adjusted (Oeflia Brown RN) FHR Baseline Rate : 140 (Ofelia Brown RN) FHR Baseline Changes: No Baseline Change (Ofelia Brown RN) Variability: Moderate 6-25 bpm (Ofelia Brown RN) Accelerations: 15X15 (Ofelia Brown RN) Decelerations: None (Ofelia Brown RN) Pain Coping: Sleeping (Ofelia Brown RN) Communication: RN Reviewed Strip (Ofelia Brown RN) Datetime: 06/15/2016 01:00 Stage of : Antepartum (Ofelia Brown RN) Monitor Mode: External (Ofelia Brown RN) Monitor Interventions for UA: [place] Adjusted (Ofelia Brown RN) Frequency (min): x1 (Ofelia Brown RN) Quality: Mild (Ofeila Brown RN) Duration (sec): 70 (Ofelia Brown RN) Resting Tone (Palpate): Relaxed (Ofelia Brown RN) Monitor Mode: External US (Ofelia Brown RN) FHR Baseline Rate : 145 (Ofelia Brown RN) FHR Baseline Changes: No Baseline Change (Ofelia Brown RN) Variability: Moderate 6-25 bpm (Ofelia Brown RN) Accelerations: 15X15 (Ofelia Brown RN) Decelerations: None (Ofelia Brown RN) Pain Coping: Sleeping (Ofelia Brown RN) Patient Position/Activity: Left Tilt; Semi-Fowlers (Ofelia Brown RN) Communication: RN Reviewed Strip (Ofelia Brown RN) Datetime: 06/15/2016 00:40 Monitor Interventions for UA: [place] Adjusted (Ofelia Brown RN) Datetime: 06/15/2016 00:30 Stage of : Antepartum (Ofelia Brown RN) Monitor Mode: External (Ofelia Brown RN) Monitor Interventions for UA: [place] Adjusted (Ofelia Brown RN) Frequency (min): occasional (Ofelia Brown RN) Quality: Mild (Ofelia Brown RN) Duration (sec): 50-70 (Ofelia Brown RN) Resting Tone (Palpate): Relaxed (Ofelia Brown RN) Monitor Mode: External US (Ofelia Brown RN) Monitor Interventions for FHR: Ultrasound Adjusted (Ofelia Brown RN) FHR Baseline Rate : 145 (Ofelia Brown RN) FHR Baseline Changes: No Baseline Change (Ofelia Brown RN) Variability: Moderate 6-25 bpm (Ofelia Brown RN) Accelerations: 15X15 (Ofelia Brown RN) Decelerations: None (Ofelia Brown RN) Pain Coping: Sleeping (Ofelia Brown RN) Communication: RN Reviewed Strip (Ofelia Brown RN) Datetime: 06/15/2016 00:00 Stage of : Antepartum (Ofelia Brown RN) Monitor Mode: External (Ofelia Brown RN) Monitor Interventions for UA: [place] Adjusted (Ofelia Brown RN) Frequency (min): 5-6 (Ofelia Brown RN) Quality: Mild (Ofelia Brown RN) Duration (sec): 50-80 (Ofelia Brown RN) Resting Tone (Palpate): Relaxed (Ofelia Brown RN) Monitor Mode: External US (Ofelia Brown RN) Monitor Interventions for FHR: Ultrasound Adjusted (Ofelia Brown RN) FHR Baseline Rate : 145 (Ofelia Brown RN) FHR Baseline Changes: No Baseline Change (Ofelia Brown RN) Variability: Moderate 6-25 bpm (Ofelia Brown RN) Accelerations: 15X15 (Ofelia Brown RN) Decelerations: None (Ofelia Brown RN) Pain Coping: Sleeping (Ofelia Brown RN) Patient Position/Activity: Left Tilt; Semi-Fowlers (Ofelia Brown RN) Communication: RN Reviewed Strip (Ofelia Brown RN) Datetime: 06/14/2016 23:30 Stage of : Antepartum (Ofelia Brown RN) Monitor Mode: External (Ofelia Brown RN) Frequency (min): 2-5 (Ofelia Brown RN) Quality: Mild (Ofelia Brown RN) Duration (sec): 50-100 (Ofelia Brown RN) Resting Tone (Palpate): Relaxed (Ofelia Brown RN) Monitor Mode: External US (Ofelia Brown RN) Monitor Interventions for FHR: Ultrasound Adjusted (Ofelia Brown RN) FHR Baseline Rate : 135 (Ofelia Brown RN) FHR Baseline Changes: No Baseline Change (Ofelia Brown RN) Variability: Moderate 6-25 bpm (Ofelia Brown RN) Accelerations: 15X15 (Ofelia Brown RN) Decelerations: None (Ofelia Brown RN) Pain Presence: None/Denies (Ofelia Brown RN) Patient Position/Activity: Left Tilt; Semi-Fowlers (Ofelia Brown RN) Communication: RN Reviewed Strip (Ofelia Brown RN) LaborFlag: Antepartum (QS system process) Datetime: 06/14/2016 23:00 Stage of : Antepartum (Ofelia Brown RN) Monitor Mode: External (Ofelia Brown RN) Monitor Interventions for UA: [place] Adjusted (Ofelia Brown RN) Frequency (min): 3-5 (Ofelia Brown RN) Quality: Mild (Ofelia Brown RN) Duration (sec): 50-90 (Ofelia Brown RN) Resting Tone (Palpate): Relaxed (Ofelia Brown RN) Monitor Mode: External US (Ofelia Brown RN) Monitor Interventions for FHR: Ultrasound Adjusted (Ofelia Brown RN) FHR Baseline Rate : 145 (Ofelia Brown RN) FHR Baseline Changes: No Baseline Change (Ofelia Brown RN) Variability: Moderate 6-25 bpm (Ofelia Brown RN) Accelerations: 15X15 (Ofelia Brown RN) Decelerations: None (Ofelia Brown RN) Pain Presence: None/Denies (Ofelia Brown RN) Patient Position/Activity: Left Tilt; Semi-Fowlers (Ofelia Brown RN) Communication: RN Reviewed Strip (Ofelia Brown RN) LaborFlag: Antepartum (QS system process) Datetime: 06/14/2016 22:56 Dilatation (cm): 1.0 (Ofelia Brown RN) Effacement (%): 0 (Ofelia Brown RN) Station: -3 (Ofelia Brown RN) Exam by: C Arturo RN (Ofelia Brown RN) Cervix, Position: Posterior (Ofelia Brown RN) Cervical Ripening Agents: Cervidil (Ofelia Brown RN) Medication Comments: Cervidil placed per protocol (Ofelia Brown RN) Datetime: 06/14/2016 22:53 Analgesics/Sedatives: Ambien (mg) @ 10 (Ofelia Brown RN) Datetime: 06/14/2016 22:30 Stage of : Antepartum (Ofelia Brown RN) Monitor Mode: External (Ofelia Brown RN) Monitor Interventions for UA: [place] Adjusted (Ofelia Brown RN) Frequency (min): x2 (Ofelia Brown RN) Quality: Mild (Ofelia Brown RN) Duration (sec): 40-50 (Ofelia Brown RN) Resting Tone (Palpate): Relaxed (Ofelia Brown RN) Monitor Mode: External US (Ofelia Brown RN) Monitor Interventions for FHR: Ultrasound Adjusted (Ofelia Brown RN) FHR Baseline Rate : 140 (Ofelia Brown RN) FHR Baseline Changes: No Baseline Change (Ofelia Brown RN) Variability: Moderate 6-25 bpm (Ofelia Brown RN) Accelerations: 15X15 (Ofelia Brown RN) Decelerations: None (Ofelia Brown RN) Pain Presence: None/Denies (Ofelia Brown RN) Communication: RN at Bedside; RN Reviewed Strip (Ofelia Brown RN) LaborFlag: Antepartum (QS system process) Datetime: 06/14/2016 22:22 Stage of : Antepartum (Ofelia Brown RN) Monitor Mode: External (Ofelia Brown RN) Monitor Interventions for UA: [place] Adjusted (Ofelia Brown RN) Resting Tone (Palpate): Relaxed (Ofelia Brown RN) Contraction Comments: TOCO applied and explained to pt (Ofelia Brown RN) Monitor Mode: External US (Ofelia Brown RN) Monitor Interventions for FHR: Ultrasound Adjusted (Ofelia Brown RN) FHR Baseline Rate : 135 (Oeflia Brown RN) FHR Baseline Changes: No Baseline Change (Ofelia Brown RN) Variability: Moderate 6-25 bpm (Ofelia Brown RN) Accelerations: 15X15 (Ofelia Brown RN) Decelerations: None (Ofelia Brown RN) Comments: US applied and explained to pt . (Ofelia Brown RN) Communication: RN at Bedside; RN Reviewed Strip (Ofeila Brown RN)
--- NOTE | 2016-06-15 10:00 | L&D Flow Sheet ---
LD Flowsheet Datetime Report Generated by CPN: 06/15/2016 10:00 Datetime: 06/15/2016 09:54 Patient Care Comments: Tug on mike bulb (Armida Alejandra, RN) Datetime: 06/15/2016 09:53 Pitocin (milliunit): Pitocin Started (milliunits) @ 2 (Armida Alejandra, RN) Datetime: 06/15/2016 09:49 I/O Interventions: Up to BR (Armida Alejandra, RN) Datetime: 06/15/2016 09:07 Patient Care Comments: Mike bulb placed (Armida Alejandra, RN) Datetime: 06/15/2016 08:55 Communication Comments: Dr. Kana discussing POc with patient (Armida Alejandra, RN) Datetime: 06/15/2016 08:51 Dilatation (cm): 2.0 (Armida Alejandra, RN) Effacement (%): 60 (Armida Alejandra, RN) Station: -2 (Armida Alejandra, RN) Exam by: Dr. Roger (Armida Alejandra, RN) Cervix, Position: Posterior (Armida Alejandra, RN) Datetime: 06/15/2016 08:50 Communication Comments: Dr. Roger at bedside (Armida Alejandra, RN) Datetime: 06/15/2016 08:47 Communication Comments: monitors applied. (Armida Alejandra, RN)
--- NOTE | 2016-06-15 12:00 | L&D Flow Sheet ---
LD Flowsheet Datetime Report Generated by CPN: 06/15/2016 12:00 Datetime: 06/15/2016 11:39 Pitocin (milliunit): Pitocin Increased to (milliunits) @ 8 (Arsalan Mathew, SN) Datetime: 06/15/2016 11:30 Monitor Mode: External (Arsalan Mathew, SN) Frequency (min): 1-1.5 (Arsalan Mathew, SN) Quality: Mild/Moderate (Arsalan Mathew, SN) Duration (sec): 50-70 (Arsalan Mathew, SN) Pattern: Normal: <= 5 Contractions in 10 Minutes (Arsalan Mathew, SN) Resting Tone (Palpate): Relaxed (Arsalan Mathew, SN) Monitor Mode: External US (Arsalan Mathew, SN) FHR Baseline Rate : 145 (Arsalan Mathew, SN) Variability: Moderate 6-25 bpm (Arsalan Mathew, SN) Accelerations: 15X15 (Arsalan Mathew, SN) Decelerations: Variable (Arsalan Mathew, SN) Datetime: 06/15/2016 11:15 Monitor Mode: External (Arsalan Mathew, SN) Frequency (min): 1-2 (Arsalan Mathew, SN) Quality: Mild/Moderate (Arsalan Mathew, SN) Quality: Mild (Arsalan Mathew, SN) Duration (sec): 50-70 (Arsalan Mathew, SN) Duration (sec): 40-70 (Arsalan Mathew, SN) Pattern: Normal: <= 5 Contractions in 10 Minutes (Arsalan Mathew, SN) Resting Tone (Palpate): Relaxed (Arsalan Mathew, SN) Monitor Mode: External US (Arsalan Mathew, SN) FHR Baseline Rate : 140 (Arsalan Mathew, SN) Variability: Moderate 6-25 bpm (Arsalan Mathew, SN) Accelerations: 15X15 (Arsalan Mathew, SN) Decelerations: None (Arsalan Mathew, SN) Datetime: 06/15/2016 11:00 Monitor Mode: External (Arsalan Mathew, SN) Frequency (min): 1-2 (Arsalan Mathew, SN) Quality: Mild (Arsalan Mathew, SN) Duration (sec): 50-80 (Arsalan Mathew, SN) Duration Criteria: Less than Two 120 Second Contractions (Arsalan Mathew, SN) Pattern: Normal: <= 5 Contractions in 10 Minutes (Arsalan Mathew, SN) Resting Tone (Palpate): Relaxed (Arsalan Mathew, SN) Monitor Mode: External US (Arsalan Mathew, SN) FHR Baseline Rate : 140 (Arsalan Mathew, SN) Variability: Moderate 6-25 bpm (Arsalan Mathew, SN) Accelerations: 15X15 (Arsalan Mathew, SN) Decelerations: None (Arsalan Mathew, SN) Pitocin (milliunit): Pitocin Increased to (milliunits) @ 6 (Armida Lims, RN) Datetime: 06/15/2016 10:45 Monitor Mode: External (Arsalan Mathew, SN) Frequency (min): 1-2 (Arsalan Mathew, SN) Quality: Mild (Arsalan Mathew, SN) Duration (sec): 50-80 (Arsalan Mathew, SN) Pattern: Normal: <= 5 Contractions in 10 Minutes (Arsalan Mathew, SN) Resting Tone (Palpate): Relaxed (Arsalan Mathew, SN) Monitor Mode: External US (Arsalan Mathew, SN) FHR Baseline Rate : 145 (Arsalan Mathew, SN) Variability: Moderate 6-25 bpm (Arsalan Mathew, SN) Accelerations: 15X15 (Arsalan Mathew, SN) Decelerations: None (Arsalan Mathew, SN) Datetime: 06/15/2016 10:30 Monitor Mode: External (Arsalan Mathew, SN) Frequency (min): Irregular (Arsalan Mathew, SN) Quality: Mild (Arsalan Mathew, SN) Duration (sec): 50-80 (Arsalan Mathew, SN) Pattern: Normal: <= 5 Contractions in 10 Minutes (Arsalan Mathew, SN) Resting Tone (Palpate): Relaxed (Arsalan Mathew, SN) Monitor Mode: External US (Arsalan Mathew, SN) FHR Baseline Rate : 140 (Arsalan Mathew, SN) Variability: Moderate 6-25 bpm (Arsalan Mathew, SN) Accelerations: 15X15 (Arsalan Mathew, SN) Decelerations: None (Arsalan Mathew, SN) Pitocin (milliunit): Pitocin Increased to (milliunits) @ 4 (Armida Roberts RN) Datetime: 06/15/2016 10:15 Monitor Mode: External (Arsalan Mathew, SN) Frequency (min): Irregular (Arsalan Mathew, SN) Quality: Mild (Arsalan Mathew, SN) Duration (sec): 50-70 (Arsalan Mathew, SN) Pattern: Normal: <= 5 Contractions in 10 Minutes (Arsalan Mathew, SN) Resting Tone (Palpate): Relaxed (Arsalan Mathew, SN) Monitor Mode: External US (Arsalan Mathew, SN) FHR Baseline Rate : 150 (Arsalan Mathew, SN) Variability: Moderate 6-25 bpm (Arsalan Mathew, SN) Accelerations: 15X15 (Arsalan Mathew, SN) Decelerations: None (Arsalan Mathew, SN) Datetime: 06/15/2016 10:00 Monitor Mode: External (Arsalan Mathew, SN) Frequency (min): Irregular (Arsalan Mathew, SN) Quality: Mild (Arsalan Mathew, SN) Duration (sec): 50-80 (Arsalan Mathew, SN) Pattern: Normal: <= 5 Contractions in 10 Minutes (Arsalan Mathew, SN) Resting Tone (Palpate): Relaxed (SN Ariel) Monitor Mode: External US (SN Ariel) FHR Baseline Rate : 150 (SN Ariel) Variability: Moderate 6-25 bpm (SN Ariel) Accelerations: 15X15 (SN Ariel) Decelerations: None (SN Ariel)
[2016-06-15] MEDS ORDERED: MISOPROSTOL 0.2 MG TABLET ONE (13:28)
[2016-06-15] MEDS ORDERED: OXYTOCIN/NORMAL SALINE 0 UNIT/0 ML RTUINJ ONE (13:28)
[2016-06-15] MEDS ORDERED: LIDOCAINE 1% INJ-PF (10 MG/ML) 30 ML SDV ONE (13:28)
--- NOTE | 2016-06-15 14:00 | L&D Flow Sheet ---
LD Flowsheet Datetime Report Generated by CPN: 06/15/2016 14:00 Datetime: 06/15/2016 13:54 NBP Sys/Teresa/Mean (mmHg): 127 (QS system process) : 92 (QS system process) : 106 (QS system process) Pulse: 115 (QS system process) LaborFlag: Antepartum (QS system process) Datetime: 06/15/2016 13:38 NBP Sys/Teresa/Mean (mmHg): 131 (QS system process) : 87 (QS system process) : 105 (QS system process) Pulse: 75 (QS system process) LaborFlag: Antepartum (QS system process) Datetime: 06/15/2016 13:23 NBP Sys/Teresa/Mean (mmHg): 136 (QS system process) : 88 (QS system process) : 107 (QS system process) Pulse: 84 (QS system process) LaborFlag: Antepartum (QS system process) Datetime: 06/15/2016 13:09 NBP Sys/Teresa/Mean (mmHg): 126 (QS system process) : 76 (QS system process) : 96 (QS system process) Pulse: 103 (QS system process) LaborFlag: Antepartum (QS system process) Datetime: 06/15/2016 13:00 Monitor Mode: External (Arsalan Mathew, SN) Frequency (min): 1-2 (Arsalan Mathew, SN) Quality: Moderate (Arsalan Mathew, SN) Duration (sec): 50-80 (Arsalan Mathew, SN) Resting Tone (Palpate): Relaxed (Arsalan Mathew, SN) Monitor Mode: External US (Arsalan Mathew, SN) FHR Baseline Rate : 130 (Arsalan Mathew, SN) Variability: Moderate 6-25 bpm (Arsalan Mathew, SN) Accelerations: 15X15 (Arsalan Mathew, SN) Decelerations: Late (Arsalan Mathew, SN) Datetime: 06/15/2016 12:54 NBP Sys/Teresa/Mean (mmHg): 126 (QS system process) : 78 (QS system process) : 97 (QS system process) Pulse: 102 (QS system process) LaborFlag: Antepartum (QS system process) Datetime: 06/15/2016 12:48 Temperature (F): 98.0 (Armida Roberts RN) Temperature (C): 36.7 (QS system process) LaborFlag: Antepartum (QS system process) Datetime: 06/15/2016 12:45 Monitor Mode: External (Arsalan Mathew, SN) Frequency (min): 1-2 (Arsalan Mathew, SN) Quality: Moderate (Arsalan Mathew, SN) Duration (sec): 50-80 (Arsalan Mathew, SN) Pattern: Normal: <= 5 Contractions in 10 Minutes (Arsalan Mathew, SN) Resting Tone (Palpate): Relaxed (Arsalan Mathew, SN) Monitor Mode: External US (Arsalan Mathew, SN) FHR Baseline Rate : 140 (Arsalan Mathew, SN) Variability: Moderate 6-25 bpm (Arsalan Mathew, SN) Accelerations: 15X15 (Arsalan Mathew, SN) Decelerations: Late (Arsalan Mathew, SN) Datetime: 06/15/2016 12:43 Dilatation (cm): 4.0 (Armida Alejandra, RN) Effacement (%): 80 (Armida Alejandra, RN) Station: -2 (Armida Alejandra, RN) Exam by: Fabrice Roberts RN (Armida Alejandra, RN) Membranes Rupture Method: Spontaneous (Armida Alejandra, RN) Amniotic Fluid Color: Clear (Armida Alejandra, RN) Amniotic Fluid Amount: Small (Armida Alejandra, RN) Datetime: 06/15/2016 12:30 Monitor Mode: External (Arsalan Mathew, SN) Frequency (min): 1-2 (Arslaan Mathew, SN) Quality: Moderate (Arsalan Mathew, SN) Duration (sec): 50-80 (Arsalan Mathew, SN) Pattern: Normal: <= 5 Contractions in 10 Minutes (Arsalan Mathew, SN) Resting Tone (Palpate): Relaxed (Arsalan Mathew, SN) Monitor Mode: External US (Arsalan Mathew, SN) FHR Baseline Rate : 140 (Arsalan Mathew, SN) Variability: Moderate 6-25 bpm (Arsalan Mathew, SN) Accelerations: 15X15 (Arsalan Mathew, SN) Decelerations: Variable (Arsalan Mathew, SN) Datetime: 06/15/2016 12:28 Patient Care Comments: Quintana bulb fell out (Armida Roberts, RN) Datetime: 06/15/2016 12:20 Contraction Comments: Pt up to restroom. (Arsalan Mathew, SN) Datetime: 06/15/2016 12:15 Monitor Mode: External (Arsalan Mathew, SN) Frequency (min): 1-2 (Arsalan Mathew, SN) Quality: Moderate (Arsalan Mathew, SN) Duration (sec): 50-90 (Arsalan Mathew, SN) Pattern: Normal: <= 5 Contractions in 10 Minutes (Arsalan Mathew, SN) Resting Tone (Palpate): Relaxed (Arsalan Mathew, SN) Monitor Mode: External US (Arsalan Mathew, SN) FHR Baseline Rate : 140 (Arsalan Mathew, SN) Variability: Moderate 6-25 bpm (Arsalan Mathew, SN) Accelerations: 15X15 (Arsalan Rodriguesrey, SN) Decelerations: Variable (Arsalan Mathew, SN) Datetime: 06/15/2016 12:00 Monitor Mode: External; Palpation (SN Ariel) Monitor Interventions for UA: [place] Adjusted (SN Ariel) Frequency (min): 1-2 (SN Ariel) Quality: Mild/Moderate (SN Ariel) Duration (sec): 50-80 (SN Ariel) Pattern: Normal: <= 5 Contractions in 10 Minutes (SN Ariel) Resting Tone (Palpate): Relaxed (SN Ariel) Contraction Comments: At [place]. [place] adjusted. (SN Ariel) Monitor Mode: External US (SN Ariel) FHR Baseline Rate : 140 (Arsalan Mathew, SN) Variability: Moderate 6-25 bpm (Arsalan Rodriguesrey SN) Accelerations: 15X15 (Arsalan Rodriguesrey, SN) Decelerations: Variable (SN Ariel)
[2016-06-15] MEDS ORDERED: MEASLES,MUMPS&RUBELLA VACC/PF 0.5 ML VIAL SUBCUT PRN (14:47)
[2016-06-15] MEDS ORDERED: DIBUCAINE 1% OINTMENT 28 GM TP PRN (14:47)
[2016-06-15] MEDS ORDERED: BENZOCAINE/MENTHOL AEROSOL SPRAY 56 ML TOP PRN (14:47)
[2016-06-15] MEDS ORDERED: ZOLPIDEM TARTRATE 5 MG TABLET PO PRN (14:47)
[2016-06-15] MEDS ORDERED: ACETAMINOPHEN WITH CODEINE #3 TABLET PO PRN ×2 (14:47)
[2016-06-15] MEDS ORDERED: OXYTOCIN/NORMAL SALINE 1,000 ML IV PRN (14:47)
[2016-06-15] MEDS ORDERED: DIPH/PERTUSS(ACELL)/TETANUS VAC/PF 0.5 ML SYR (>=10YO) IM PRN (14:47)
[2016-06-15] MEDS ORDERED: BENZOCAINE/MENTHOL AEROSOL SPRAY 56 ML ONE (15:40)
--- NOTE | 2016-06-15 16:00 | L&D Flow Sheet ---
LD Flowsheet Datetime Report Generated by CPN: 06/15/2016 16:00 Datetime: 06/15/2016 15:45 Stage of : Recovery (Armida Alejandra, RN) Pain Scale: 3 (Armida Alejandra, RN) Pain Presence: Intermittent (Armida Alejandra, RN) Pain Type: Cramping (Armida Alejandra, RN) Pain Location: Abdomen (Armida Alejandra, RN) Pain Relief Measures: Comfort Measures (Armida Alejandra, RN) Datetime: 06/15/2016 15:23 NBP Sys/Teresa/Mean (mmHg): 138 (QS system process) : 87 (QS system process) : 107 (QS system process) Pulse: 88 (QS system process) Datetime: 06/15/2016 15:15 Stage of : Recovery (Armida Alejandra, RN) Pain Scale: 3 (Armida Alejandra, RN) Pain Presence: Intermittent (Armida Alejandra, RN) Pain Type: Cramping (Armida Alejandra, RN) Pain Location: Abdomen (Armida Alejandra, RN) Pain Relief Measures: Comfort Measures (Armida Alejandra, RN) Datetime: 06/15/2016 15:08 NBP Sys/Teresa/Mean (mmHg): 125 (QS system process) : 85 (QS system process) : 101 (QS system process) Pulse: 90 (QS system process) Datetime: 06/15/2016 15:00 Stage of : Recovery (Armida Roberts, RN) Pain Scale: 3 (Armida Roberts, RN) Pain Presence: Intermittent (Armida Alejandra, RN) Pain Type: Cramping (Annotations: pain with fundal rubs) (Armida Alejandra, RN) Pain Location: Abdomen (Armida Alejandra, RN) Pain Relief Measures: Comfort Measures (Annotations: patient refuses pain medication at this time ) (Armida Roberts, RN) Datetime: 06/15/2016 14:52 NBP Sys/Teresa/Mean (mmHg): 127 (QS system process) : 90 (QS system process) : 103 (QS system process) Pulse: 90 (QS system process) Datetime: 06/15/2016 14:45 Stage of : Recovery (Armida Alejandra, RN) Datetime: 06/15/2016 14:38 NBP Sys/Teresa/Mean (mmHg): 118 (QS system process) : 81 (QS system process) : 96 (QS system process) Pulse: 91 (QS system process) Datetime: 06/15/2016 14:30 Stage of : Recovery (Armida Alejandra, RN) Datetime: 06/15/2016 14:23 NBP Sys/Teresa/Mean (mmHg): 122 (QS system process) : 70 (QS system process) : 91 (QS system process) Pulse: 93 (QS system process) LaborFlag: Antepartum (QS system process) Datetime: 06/15/2016 14:01 Dilatation (cm): 10.0 (Kasandra Calvo RN) Effacement (%): 100 (Kasandra Calvo RN) Station: 3 (Kasandra Calvo RN) Exam by: Fabrice Roberts RN (Kasandra Calvo RN) Datetime: 06/15/2016 14:00 Monitor Mode: External; Palpation (Armida Roberts RN) Frequency (min): 2 (Armida Roberts RN) Quality: Moderate to Strong (Armida Roberts RN) Duration (sec): 60-80 (Armida Roberts RN) Resting Tone (Palpate): Relaxed (Armida Roberts RN) Monitor Mode: External US (Armida Roberts RN) FHR Baseline Rate : 145 (Armida Roberts RN) Variability: Moderate 6-25 bpm (Armida Roberts RN) Accelerations: 15X15 (Armida Roberts RN) Decelerations: Early (Armida Roberts RN)
[2016-06-15] MEDS ORDERED: FENTANYL CITRATE INJ/PF 100 MCG/2 ML AMPUL ONE (16:02)
[2016-06-15] MEDS ORDERED: ACETAMINOPHEN WITH CODEINE #3 TABLET ONE (16:20)
--- NOTE | 2016-06-15 16:34 | Admission Physical ---
Datetime Report Generated by CPN: 06/15/2016 16:34 CURRENT ADMISSION Chief Complaint: Scheduled Induction of Labor Indication for Induction: IUGR Indication for Induction- Other: rising s/d ratio Admit Plan: Admit to Unit; Initiate Labor Induction Protocol Admit Plan- Other: may have epidural when ready ALLERGIES Medication Allergies: No Medication Allergies: No Known Allergies (06/13/2016) Latex: No Latex Allergies OBSTETRICAL HISTORY EDC: 06/17/2016 00:00 : 2 Para: 1 Term: 1 : 0 SAB: 0 IAB: 0 Ectopic: 0 Livin Cesareans: 0 VBACs: 0 Multiple Births: 0 Gestational Diabetes: No Rh Sensitization: No Incompetent Cervix: No SENAIT: No Infertility: No ART Treatment: No Uterine Anomaly: No IUGR: Yes Hx Previous C/S: No Macrosomia: No Hx Loss/Stillborn: No PIH: No Hx : No Placenta Previa/Abruption: No Depression/PP Depression: No PTL/PROM: No Post Hemorrhage: No Current Procedures: Ultrasound; NST; Doppler Flow Study Obstetrical History Comments: G1: Male 6#8oz vaginal SEE RECORDS Alcohol: No Marijuana : No Cocaine: No Other Illicit Drugs: No Cigarettes: Never Smoker. [id number] MEDICAL HISTORY Diabetes: No Blood Transfusion: No Pulmonary Disease (Asthma, TB): No Breast Disease: No Hypertension: No Registered Nurse Bone Marrow Transplant Surgery: No Heart Disease: No Hosp/Surgery: Yes Autoimmune Disorder: No Anesthetic Complications: No Kidney Disease: No Abnormal Pap Smear: No Neuro/Epilepsy: Yes Psychiatric Disorders: No Other Medical Diseases: Yes Hepatitis/Liver Disease: No Significant Family History: No Varicosities/Phlebitis: No Trauma/Violence : No Thyroid Dysfunction: No Medical History Comments: migraine, spinal fusion 2007. chrones and ulcerative colitis INFECTIOUS HISTORY Gonorrhea: No Genital Herpes: No Chlamydia: No Tuberculosis: No Syphilis: No Hepatitis: No HIV/AIDS Exposure: No Rash or Viral Illness: No HPV: No PHYSICAL EXAM General: Normal HEENT: Normal Neurologic: Normal Thyroid: Normal Heart: Normal Lungs: Normal Breast: Normal Back: Normal Abdomen: Normal Genitourinary Exam: Normal Extremities: Normal DTRs: Normal Pelvic Type: Adequate Vital Signs: Reviewed VAGINAL EXAM Dilatation: 1 Effacement: 0 Station: -3 MEMBRANES Pooling: Negative Membranes: Intact FETUS A EGA: 39.3 Monitoring: External US FHR- Baseline: 150 Variability: Moderate 6-25bpm Accelerations: 15X15 Decelerations: None FHR Category: Category II Estimated Weight (gm): 3000 Presentation: Vertex PLANS FOR LABOR AND DELIVERY Pain Management: Natural Feeding Preference: Formula Benefit of Breast Feed Discussed: Yes INFORMED CONSENT Signature: with User ID: Daria
[2016-06-15] MEDS: FERROUS SULFATE 325 MG TABLET PO SCH (17:26)
[2016-06-15] MEDS ORDERED: ONDANSETRON 4 MG TAB.RAPDIS ONE (17:52)
[2016-06-15] MEDS ORDERED: DOCUSATE SODIUM 100 MG CAPSULE PO SCH (18:00)
[2016-06-15] MEDS ORDERED: ONDANSETRON 4 MG TAB.RAPDIS PO PRN (18:03)
[2016-06-15] MEDS ORDERED: BISACODYL 10 MG SUPP.RECT PR PRN (18:04)
--- NOTE | 2016-06-15 19:00 | L&D Flow Sheet ---
LD Flowsheet Datetime Report Generated by CPN: 06/15/2016 19:00 Datetime: 06/15/2016 16:23 NBP Sys/Teresa/Mean (mmHg): 108 (QS system process) : 70 (QS system process) : 83 (QS system process) Pulse: 84 (QS system process) Datetime: 06/15/2016 16:16 NBP Sys/Teresa/Mean (mmHg): 111 (QS system process) : 86 (QS system process) : 95 (QS system process) Pulse: 83 (QS system process) Datetime: 06/15/2016 15:45 Stage of : Recovery (Armida Alejandra, RN) Pain Scale: 3 (Armida Alejandra, RN) Pain Presence: Intermittent (Armida Alejandra, RN) Pain Type: Cramping (Armida Alejandra, RN) Pain Location: Abdomen (Armida Alejandra, RN) Pain Relief Measures: Comfort Measures (Armida Alejandra, RN) Datetime: 06/15/2016 15:23 NBP Sys/Teresa/Mean (mmHg): 138 (QS system process) : 87 (QS system process) : 107 (QS system process) Pulse: 88 (QS system process) Datetime: 06/15/2016 15:15 Stage of : Recovery (Armida Roberts, RN) Pain Scale: 3 (Armida Roberts, RN) Pain Presence: Intermittent (Armida Lims, RN) Pain Type: Cramping (Armida Lims, RN) Pain Location: Abdomen (Armida Lims, RN) Pain Relief Measures: Comfort Measures (Armida Lims, RN) Datetime: 06/15/2016 15:08 NBP Sys/Teresa/Mean (mmHg): 125 (QS system process) : 85 (QS system process) : 101 (QS system process) Pulse: 90 (QS system process) Datetime: 06/15/2016 15:00 Stage of : Recovery (Armida Roberts, RN) Pain Scale: 3 (Armida Lims, RN) Pain Presence: Intermittent (Armida Lims, RN) Pain Type: Cramping (Annotations: pain with fundal rubs) (Armida Alejandra, RN) Pain Location: Abdomen (Armida Alejandra, RN) Pain Relief Measures: Comfort Measures (Annotations: patient refuses pain medication at this time ) (Armida Alejandra, RN) Datetime: 06/15/2016 14:52 NBP Sys/Teresa/Mean (mmHg): 127 (QS system process) : 90 (QS system process) : 103 (QS system process) Pulse: 90 (QS system process) Datetime: 06/15/2016 14:45 Stage of : Recovery (Armida Alejandra, RN) Datetime: 06/15/2016 14:38 NBP Sys/Teresa/Mean (mmHg): 118 (QS system process) : 81 (QS system process) : 96 (QS system process) Pulse: 91 (QS system process) Datetime: 06/15/2016 14:30 Stage of : Recovery (Armida Alejandra, RN) Datetime: 06/15/2016 14:23 NBP Sys/Teresa/Mean (mmHg): 122 (QS system process) : 70 (QS system process) : 91 (QS system process) Pulse: 93 (QS system process) LaborFlag: Antepartum (QS system process) Datetime: 06/15/2016 14:01 Dilatation (cm): 10.0 (Kasandra Calvo, RN) Effacement (%): 100 (Kasandra Calvo, RN) Station: 3 (Kasandra Calvo, RN) Exam by: H. Alejandra, RN (Kasandra Calvo, RN) Datetime: 06/15/2016 14:00 Monitor Mode: External; Palpation (Armida Alejandra, RN) Frequency (min): 2 (Armida Alejandra, RN) Quality: Moderate to Strong (Armida Alejandra, RN) Duration (sec): 60-80 (Armida Alejandra, RN) Resting Tone (Palpate): Relaxed (Armida Alejandra, RN) Monitor Mode: External US (Armida Alejandra, RN) FHR Baseline Rate : 145 (Armida Alejandra, RN) Variability: Moderate 6-25 bpm (Armida Alejandra, RN) Accelerations: 15X15 (Armida Alejandra, RN) Decelerations: Early (Armida Alejandra, RN) Datetime: 06/15/2016 13:54 NBP Sys/Teresa/Mean (mmHg): 127 (QS system process) : 92 (QS system process) : 106 (QS system process) Pulse: 115 (QS system process) LaborFlag: Antepartum (QS system process) Datetime: 06/15/2016 13:45 Monitor Mode: External (Armida Alejandra, RN) Frequency (min): 2 (Armida Alejandra, RN) Quality: Moderate (Armida Alejandra, RN) Duration (sec): 60-80 (Armida Alejandra, RN) Resting Tone (Palpate): Relaxed (Armida Alejandra, RN) Monitor Mode: External US (Armida Alejandra, RN) FHR Baseline Rate : 145 (Armida Alejandra, RN) Variability: Moderate 6-25 bpm (Armida Alejandra, RN) Accelerations: 15X15 (Armida Alejandra, RN) Decelerations: Variable (Armida Alejandra, RN) Datetime: 06/15/2016 13:38 NBP Sys/Teresa/Mean (mmHg): 131 (QS system process) : 87 (QS system process) : 105 (QS system process) Pulse: 75 (QS system process) LaborFlag: Antepartum (QS system process) Datetime: 06/15/2016 13:30 Monitor Mode: External; Palpation (Armida Alejandra, RN) Frequency (min): 1-2 (Armida Alejandra, RN) Quality: Moderate to Strong (Armida Alejandra, RN) Duration (sec): 60-80 (Armida Alejandra, RN) Resting Tone (Palpate): Relaxed (Armida Alejandra, RN) Monitor Mode: External US (Armida Alejandra, RN) FHR Baseline Rate : 145 (Armida Alejandra, RN) Variability: Moderate 6-25 bpm (Armida Alejandra, RN) Accelerations: None (Armida Alejandra, RN) Decelerations: Variable (Armida Alejandra, RN) Analgesics/Sedatives: Fentanyl (mcg) @ 50 (Armida Alejandra, RN) Datetime: 06/15/2016 13:23 NBP Sys/Teresa/Mean (mmHg): 136 (QS system process) : 88 (QS system process) : 107 (QS system process) Pulse: 84 (QS system process) LaborFlag: Antepartum (QS system process) Datetime: 06/15/2016 13:15 Monitor Mode: External; Palpation (Armida Alejandra, RN) Frequency (min): 1-2 (Armida Alejandra, RN) Quality: Moderate to Strong (Armida Alejandra, RN) Duration (sec): 60-80 (Armida Alejandra, RN) Resting Tone (Palpate): Relaxed (Armida Alejandra, RN) Monitor Mode: External US (Armida Alejandra, RN) FHR Baseline Rate : 145 (Armida Alejandra, RN) Variability: Moderate 6-25 bpm (Armida Alejandra, RN) Accelerations: 15X15 (Armida Alejandra, RN) Decelerations: Variable (Armida Alejandra, RN) Datetime: 06/15/2016 13:09 NBP Sys/Teresa/Mean (mmHg): 126 (QS system process) : 76 (QS system process) : 96 (QS system process) Pulse: 103 (QS system process) LaborFlag: Antepartum (QS system process) Datetime: 06/15/2016 13:00 Monitor Mode: External (Arsalan Mathew, SN) Frequency (min): 1-2 (Arsalan Mathew, SN) Quality: Moderate (Arsalan Mathew, SN) Duration (sec): 50-80 (Arsalan Mathew, SN) Resting Tone (Palpate): Relaxed (Arsalan Mathew, SN) Monitor Mode: External US (Arsalan Mathew, SN) FHR Baseline Rate : 130 (Arsalan Mathew, SN) Variability: Moderate 6-25 bpm (Arsalan Mathew, SN) Accelerations: 15X15 (Arsalan Mathew, SN) Decelerations: Late (Arsalan Mathew, SN) Datetime: 06/15/2016 12:54 NBP Sys/Teresa/Mean (mmHg): 126 (QS system process) : 78 (QS system process) : 97 (QS system process) Pulse: 102 (QS system process) LaborFlag: Antepartum (QS system process) Datetime: 06/15/2016 12:48 Temperature (F): 98.0 (Armida Roberts, CHPAARRITA) Temperature (C): 36.7 (QS system process) LaborFlag: Antepartum (QS system process) Datetime: 06/15/2016 12:45 Monitor Mode: External (Arsalan Mathew, SN) Frequency (min): 1-2 (Arsalan Mathew, SN) Quality: Moderate (Arsalan Mathew, SN) Duration (sec): 50-80 (Arsalan Mathew, SN) Pattern: Normal: <= 5 Contractions in 10 Minutes (Arsalan Mathew, SN) Resting Tone (Palpate): Relaxed (Arsalan Mathew, SN) Monitor Mode: External US (Arsalan Mathew, SN) FHR Baseline Rate : 140 (Arsalan Mathew, SN) Variability: Moderate 6-25 bpm (Arsalan Mathew, SN) Accelerations: 15X15 (Arsalan Mathew, SN) Decelerations: Late (Arsalan Mathew, SN) Datetime: 06/15/2016 12:43 Dilatation (cm): 4.0 (Armida Roberts RN) Effacement (%): 80 (Armida Roberts RN) Station: -2 (Armida Roberts RN) Exam by: Fabrice Roberts RN (Armida Roberts RN) Membranes Rupture Method: Spontaneous (Armida Roberts RN) Amniotic Fluid Color: Clear (Armida Roberts RN) Amniotic Fluid Amount: Small (Armida Roberts RN) Datetime: 06/15/2016 12:30 Monitor Mode: External (Arsalan Mathew, SN) Frequency (min): 1-2 (Arsalan Rodriguesrey, SN) Quality: Moderate (Arsalan Mathew SN) Duration (sec): 50-80 (SN Ariel) Pattern: Normal: <= 5 Contractions in 10 Minutes (Arsalan Mathew SN) Resting Tone (Palpate): Relaxed (SN Ariel) Monitor Mode: External US (SN Ariel) FHR Baseline Rate : 140 (Arsalan Mathew, SN) Variability: Moderate 6-25 bpm (Arsalan Mathew, SN) Accelerations: 15X15 (Arsalan Mathew, SN) Decelerations: Variable (Arsalan Mathew, SN) Datetime: 06/15/2016 12:28 Patient Care Comments: Mike bulb fell out (Armida Alejandra, RN) Datetime: 06/15/2016 12:20 Contraction Comments: Pt up to restroom. (Arsalan Mathew, SN) Datetime: 06/15/2016 12:15 Monitor Mode: External (Arsalan Mathew, SN) Frequency (min): 1-2 (Arsalan Mathew, SN) Quality: Moderate (Arsalan Mathew, SN) Duration (sec): 50-90 (Arsalan Mathew, SN) Pattern: Normal: <= 5 Contractions in 10 Minutes (Arsalan Mathew, SN) Resting Tone (Palpate): Relaxed (Arsalan Mathew, SN) Monitor Mode: External US (Arsalan Mathew, SN) FHR Baseline Rate : 140 (Arsalan Mathew, SN) Variability: Moderate 6-25 bpm (Arsalan Mathew, SN) Accelerations: 15X15 (Arsalan Mathew, SN) Decelerations: Variable (Arsalan Mathew, SN) Datetime: 06/15/2016 12:00 Monitor Mode: External; Palpation (Arsalan Mathew, SN) Monitor Interventions for UA: [place] Adjusted (Arsalan Mathew, SN) Frequency (min): 1-2 (Arsalan Mathew, SN) Quality: Mild/Moderate (Arsalan Mathew, SN) Duration (sec): 50-80 (Arsalan Mathew, SN) Pattern: Normal: <= 5 Contractions in 10 Minutes (Arsalan Mathew, SN) Resting Tone (Palpate): Relaxed (Arsalan Mathew, SN) Contraction Comments: At [place]. [place] adjusted. (Arsalan Mathew, SN) Monitor Mode: External US (Arsalan Mathew, SN) FHR Baseline Rate : 140 (Arsalan Mathew, SN) Variability: Moderate 6-25 bpm (Arsalan Mathew, SN) Accelerations: 15X15 (Arsalan Mathew, SN) Decelerations: Variable (Arsalan Mathew, SN) Datetime: 06/15/2016 11:45 Monitor Mode: External (Arsalan Mathew, SN) Frequency (min): 1-2 (Arsalan Mathew, SN) Quality: Mild/Moderate (Arsalan Mathew, SN) Duration (sec): 50-90 (Arsalan Mathew, SN) Pattern: Normal: <= 5 Contractions in 10 Minutes (Arsalan Mathew, SN) Resting Tone (Palpate): Relaxed (Arsalan Mathew, SN) Monitor Mode: External US (Arsalan Mathew, SN) FHR Baseline Rate : 145 (Arsalan Mathew, SN) Variability: Moderate 6-25 bpm (Arsalan Mathew, SN) Accelerations: 15X15 (Arsalan Mathew, SN) Decelerations: None (Arsalan Mathew, SN) Datetime: 06/15/2016 11:39 Pitocin (milliunit): Pitocin Increased to (milliunits) @ 8 (Arsalan Mathew, SN) Datetime: 06/15/2016 11:30 Monitor Mode: External (Arsalan Mathew, SN) Frequency (min): 1-1.5 (Arsalan Mathew, SN) Quality: Mild/Moderate (Arsalan Mathew, SN) Duration (sec): 50-70 (Arsalan Mathew, SN) Pattern: Normal: <= 5 Contractions in 10 Minutes (Arsalan Mathew, SN) Resting Tone (Palpate): Relaxed (Arsalan Mathew, SN) Monitor Mode: External US (Arsalan Mathew, SN) FHR Baseline Rate : 145 (Arsalan Mathew, SN) Variability: Moderate 6-25 bpm (Arsalan Mathew, SN) Accelerations: 15X15 (Arsalan Mathew, SN) Decelerations: Variable (Arsalan Mathew, SN) Datetime: 06/15/2016 11:15 Monitor Mode: External (Arsalan Mathew, SN) Frequency (min): 1-2 (Arsalan Mathew, SN) Quality: Mild/Moderate (Arsalan Mathew, SN) Quality: Mild (Arsalan Mathew, SN) Duration (sec): 50-70 (Arsalan Mathew, SN) Duration (sec): 40-70 (Arsalan Mathew, SN) Pattern: Normal: <= 5 Contractions in 10 Minutes (Arsalan Mathew, SN) Resting Tone (Palpate): Relaxed (Arsalan Mathew, SN) Monitor Mode: External US (Arsalan Mathew, SN) FHR Baseline Rate : 140 (Arsalan Mathew, SN) Variability: Moderate 6-25 bpm (Arsalan Mathew, SN) Accelerations: 15X15 (Arsalan Mathew, SN) Decelerations: None (Arsalan Mathew, SN) Datetime: 06/15/2016 11:00 Monitor Mode: External (Arsalan Mathew, SN) Frequency (min): 1-2 (Arsalan Mathew, SN) Quality: Mild (Arsalan Mathew, SN) Duration (sec): 50-80 (Arsalan Mathew, SN) Duration Criteria: Less than Two 120 Second Contractions (Arsalan Mathew, SN) Pattern: Normal: <= 5 Contractions in 10 Minutes (Arsalan Mathew, SN) Resting Tone (Palpate): Relaxed (Arsalan Mathew, SN) Monitor Mode: External US (Arsalan Mathew, SN) FHR Baseline Rate : 140 (Arsalan Mathew, SN) Variability: Moderate 6-25 bpm (Arsalan Mathew, SN) Accelerations: 15X15 (Arsalan Mathew, SN) Decelerations: None (Arsalan Mathew, SN) Pitocin (milliunit): Pitocin Increased to (milliunits) @ 6 (Armida Roberts, RN) Datetime: 06/15/2016 10:45 Monitor Mode: External (Arsalan Mathew, SN) Frequency (min): 1-2 (Arsalan Mathew, SN) Quality: Mild (Arsalan Mathew, SN) Duration (sec): 50-80 (Arsalan Mathew, SN) Pattern: Normal: <= 5 Contractions in 10 Minutes (Arsalan Mathew, SN) Resting Tone (Palpate): Relaxed (Arsalan Mathew, SN) Monitor Mode: External US (Arsalan Mathew, SN) FHR Baseline Rate : 145 (Arsalan Mathew, SN) Variability: Moderate 6-25 bpm (Arsalan Mathew, SN) Accelerations: 15X15 (Arsalan Mathew, SN) Decelerations: None (Arsalan Mathew, SN) Datetime: 06/15/2016 10:30 Monitor Mode: External (Arsalan Mathew, SN) Frequency (min): Irregular (Arsalan Mathew, SN) Quality: Mild (Arsalan Mathew, SN) Duration (sec): 50-80 (Arsalan Mathew, SN) Pattern: Normal: <= 5 Contractions in 10 Minutes (Arsalan Mathew, SN) Resting Tone (Palpate): Relaxed (Arsalan Mathew, SN) Monitor Mode: External US (Arsalan Mathew, SN) FHR Baseline Rate : 140 (Arsalan Mathew, SN) Variability: Moderate 6-25 bpm (Arsalan Mathew, SN) Accelerations: 15X15 (Arsalan Mathew, SN) Decelerations: None (Arsalan Mathew, SN) Pitocin (milliunit): Pitocin Increased to (milliunits) @ 4 (Armida Roberts RN) Datetime: 06/15/2016 10:15 Monitor Mode: External (Arsalan Mathew, SN) Frequency (min): Irregular (Arsalan Mathew, SN) Quality: Mild (Arsalan Mathew, SN) Duration (sec): 50-70 (Arsalan Mathew, SN) Pattern: Normal: <= 5 Contractions in 10 Minutes (Arsalan Mathew, SN) Resting Tone (Palpate): Relaxed (Arsalan Mathew, SN) Monitor Mode: External US (Arsalan Mathew, SN) FHR Baseline Rate : 150 (Arsalan Mathew, SN) Variability: Moderate 6-25 bpm (Arsalan Mathew, SN) Accelerations: 15X15 (Arsalan Mathew, SN) Decelerations: None (Arsalan Mathew, SN) Datetime: 06/15/2016 10:00 Monitor Mode: External (Arsalan Mathew, SN) Frequency (min): Irregular (Arsalan Mathew, SN) Quality: Mild (Arsalan Mathew, SN) Duration (sec): 50-80 (Arsalan Mathew, SN) Pattern: Normal: <= 5 Contractions in 10 Minutes (Arsalan Mathew, SN) Resting Tone (Palpate): Relaxed (Arsalan Mathew, SN) Monitor Mode: External US (Arsalan Mathew, SN) FHR Baseline Rate : 150 (Arsalan Mathew, SN) Variability: Moderate 6-25 bpm (Arsalan Mathew, SN) Accelerations: 15X15 (Arsalan Mathew, SN) Decelerations: None (Arsalan Mathew, SN) Datetime: 06/15/2016 09:54 Patient Care Comments: Tug on mike bulb (Armida Alejandra, RN) Datetime: 06/15/2016 09:53 Pitocin (milliunit): Pitocin Started (milliunits) @ 2 (Armida Alejandra, RN) Datetime: 06/15/2016 09:49 I/O Interventions: Up to BR (Armida Alejandra, RN) Datetime: 06/15/2016 09:30 Monitor Mode: External (Arsalan Mathew, SN) Frequency (min): Irregular (Arsalan Mathew, SN) Quality: Mild (Arsalan Mathew, SN) Duration (sec): 50-70 (Arsalan Mathew, SN) Pattern: Normal: <= 5 Contractions in 10 Minutes (Arsalan Mathew, SN) Resting Tone (Palpate): Relaxed (Arsalan Mathew, SN) Monitor Mode: External US (Arsalan Mathew, SN) FHR Baseline Rate : 140 (Arsalan Mathew, SN) Variability: Moderate 6-25 bpm (Arsalan Mathew, SN) Accelerations: 15X15 (Arsalan Mathew, SN) Decelerations: Variable (Arsalan Mathew, SN) Datetime: 06/15/2016 09:07 Patient Care Comments: Mike bulb placed (Armida Alejandra, RN) Datetime: 06/15/2016 08:55 Communication Comments: Dr. Roger discussing POc with patient (Armida Alejandra, RN) Datetime: 06/15/2016 08:51 Dilatation (cm): 2.0 (Armida Alejandra, RN) Effacement (%): 60 (Armida Alejandra, RN) Station: -2 (Armida Alejandra, RN) Exam by: Dr. Roger (Armida Alejandra, RN) Cervix, Position: Posterior (Armida Alejandra, RN) Datetime: 06/15/2016 08:50 Communication Comments: Dr. Roger at bedside (Armida Alejandra, RN) Datetime: 06/15/2016 08:47 Communication Comments: monitors applied. (Armida Alejandra, RN) Datetime: 06/15/2016 07:42 Level of Consciousness: Fully Conscious (Arsalan Mathew, SN) DTR's/Clonus: DTRs 1+ (Arsalan Mathew, SN) Headache: Denies (Arsalan Mathew, SN) Breath Sounds, Right: Clear and Equal (Arsalan Mathew, SN) Nausea/Vomiting: Denies (Arsalan Mathew, SN) RUQ Epigastric Pain: Denies (Arsalan Mathew, SN) Datetime: 06/15/2016 07:30 Monitor Mode: External (Armida Alejandra, RN) Frequency (min): 2-5 (Armida Alejandra, RN) Quality: Mild (Armida Alejandra, RN) Duration (sec): 60-80 (Armida Alejandra, RN) Resting Tone (Palpate): Relaxed (Armida Alejandra, RN) Monitor Mode: External US (Armida Alejandra, RN) FHR Baseline Rate : 130 (Armida Alejandra, RN) Variability: Moderate 6-25 bpm (Armida Alejandra, RN) Accelerations: 15X15 (Armida Alejandra, RN) Decelerations: None (Armida Alejandra, RN) Datetime: 06/15/2016 07:15 Communication Comments: Report given to Lynda Roberts RN, care relinquished at this time. (Ofelia Brown RN) Datetime: 06/15/2016 07:00 Stage of : Antepartum (Ofelia Brown RN) Monitor Mode: External (Ofelia Brown RN) Frequency (min): 2-7 (Ofelia Brown RN) Quality: Mild (Ofelia Brown RN) Duration (sec): 40-70 (Ofelia Brown RN) Resting Tone (Palpate): Relaxed (Ofelia Brown RN) Monitor Mode: External US (Ofelia Brown RN) FHR Baseline Rate : 145 (Ofelia Brown RN) FHR Baseline Changes: No Baseline Change (Ofelia Brown RN) Variability: Moderate 6-25 bpm (Ofelia Brown RN) Accelerations: 15X15 (Ofelia Brown RN) Decelerations: None (Ofelia Brown RN) Pain Presence: None/Denies (Ofelia Brown RN) Communication: RN Reviewed Strip (Ofelia Brown RN) LaborFlag: Antepartum (QS system process)
[2016-06-15] MEDS: IBUPROFEN 800 MG TABLET PO SCH (21:07)
[2016-06-15] MEDS ORDERED: ZOLPIDEM TARTRATE 5 MG TABLET PO SCH (22:00)
[2016-06-16] MEDS: IBUPROFEN 800 MG TABLET PO SCH ×2 (05:04→14:53)
--- NOTE | 2016-06-16 06:00 | L&D Current Admission ---
Current Admit Datetime Report Generated by CPN: 06/16/2016 06:00 ADMISSION INFORMATION Current Admit Date/Time: 06/13/2016 18:03 (06/13/2016 20:04:Christine Henderson RN) Reason for Admission: Induction of Labor (06/13/2016 20:04:Christine Henderson RN) Chief Complaint: Scheduled Induction of Labor (06/13/2016 19:00:Christine Henderson RN) EGA per Dates: 39.3 (06/13/2016 20:04:QS system process) Method of Arrival: Ambulatory (06/13/2016 20:04:Christine Henderson RN) Admitted From: Home (06/13/2016 20:04:Christine Henderson RN) Reason for Induction: Intrauterine Growth Retardation (06/13/2016 20:04:Christine Henderson RN) Records Available: Yes (06/13/2016 20:04:Christine Henderson RN) General Admission Information: Reviewed (06/13/2016 20:04:Christine Henderson RN) General Admission Reviewed By: Chance Henderson RN (06/13/2016 20:04:Christine Henderson RN) BELONGINGS/ADVANCED DIRECTIVES Valuables/Personal Effects: Purse/Wallet; Cell Phone (06/13/2016 20:04:Christine Henderson RN) Other Belongings: stroller, diaper bag, clothes (06/13/2016 20:04:Christine Henderson RN) Disposition of Belongings: Kept with Patient (06/13/2016 20:04:Christine Henderson RN) Advance Direct for Healthcare: No, and Wants No Information (06/13/2016 20:04:Christine Henderson RN) Durable Power of Child Custody Evaluator: No (06/13/2016 20:04:Christine Henderson RN) Living Will: No (06/13/2016 20:04:Christine Henderson RN) Organ Donor: No (06/13/2016 20:04:Christine Henderson RN) Pt Rights Information Given: Yes (06/13/2016 20:04:Christine Henderson RN) Pt Understands Pt Rights: Yes (06/13/2016 20:04:Christine Henderson RN) LEARNING ASSESSMENT Knowledge Level: Understands L_D Process; Understands Care Activities (06/13/2016 20:04:Christine Henderson RN) Barriers to Learning: None (06/13/2016 20:04:Christine Henderson RN) Learning Readiness: Motivated (06/13/2016 20:04:Christine Henderson RN) Learns Best By: 1 to 1 Instruction (06/13/2016 20:04:Christine Henderson RN) Learning Needs: Labor and Delivery Process; Pain Management; Symptoms to Report; Treatment Plan; Medication (06/13/2016 20:04:Christine Henderson RN) DOMESTIC VIOLANCE SCREENING Dom Viol Threatened/Hurt: No (06/13/2016 20:04:Christine Henderson RN) Hx of Abuse/Neglect past 2yrs: No (06/13/2016 20:04:Christine Henderson RN) Feel Unsafe Going Home: No (06/13/2016 20:04:Christine Henderson RN) Addt'l Observ Indicating Abuse: No (06/13/2016 20:04:Christine Henderson RN) Reason Unable to Complete Screen: N/A, Screen Completed (06/13/2016 20:04:Christine Henderson RN) Considered Personal Harm/Suicide: No (06/13/2016 20:04:Christine Henderson RN) NUTRITIONAL/FUNCTIONAL SCREENING Problem with Appetite >5 Days: No (06/13/2016 20:04:Christine Henderson RN) Chew/Swallow Difficulties: No (06/13/2016 20:04:Christine Henderson RN) Inappropriate Wt Gain/Loss: No (06/13/2016 20:04:Christine Henderson RN) Presence Skin Breakdown/Ulcer: No (06/13/2016 20:04:Christine Henderson RN) Special Diet: No (06/13/2016 20:04:Christine Henderson RN) Pt Requests Commercial [employer] Visit: No (06/13/2016 20:04:Christine Henderson RN) Hx of Any of the Following?: N/A (06/13/2016 20:04:Christine Henderson RN) New Diagnosis of: N/A (06/13/2016 20:04:Christine Henderson RN) Requires Assist w/Ambulation: No (06/13/2016 20:04:Christine Henderson RN) Uses Assist Device to Ambulate: No (06/13/2016 20:04:Christine Henderson RN) Pt Requires Help w/ADL's: No (06/13/2016 20:04:Christine Henderson RN)
--- NOTE | 2016-06-16 06:00 | L&D General Admission ---
General Admit Datetime Report Generated by CPN: 06/16/2016 06:00 INFORMATION Patient Age: 25 (06/13/2016 17:32:QS system process) EDC: 06/17/2016 00:00 (06/13/2016 17:52:Christine Henderson RN) : 2 (06/13/2016 17:52:Christine Henderson RN) Para: 1 (06/13/2016 17:52:Christine Henderson RN) Term: 1 (06/13/2016 17:52:Armida Roberts RN) : 0 (06/13/2016 17:52:Armida Roberts RN) Spontaneous Abortions: 0 (06/13/2016 17:52:Armida Roberts RN) Induced Abortions: 0 (06/13/2016 17:52:Armida Roberts RN) Livin (06/13/2016 17:52:Armida Roberts RN) Cesareans: 0 (06/13/2016 17:52:Armida Roberts RN) VBACs: 0 (06/13/2016 17:52:Armida Roberts RN) Ectopic: 0 (06/13/2016 17:52:Armida Roberts RN) Multiple Births: 0 (06/13/2016 17:52:Armida Roberts RN) Baby, Number in Womb: 0 (06/13/2016 17:52:Armida Roberts RN) CARE Primary Refrigerator Glazier: [facility] (06/13/2016 17:52:Christine Henderson RN) Adequate Care: Yes (06/13/2016 17:52:Christine Henderson RN) Height (in): 64 (06/15/2016 16:33:QS system process) ALLERGIES Medication Allergy: No (06/13/2016 17:52:Christine Henderson RN) Medication Allergies: No Known Allergies (06/13/2016) (06/13/2016 18:43:QS system process) Latex Allergy: No Latex Allergies (06/13/2016 17:52:Christine Henderson RN) COMMUNICATION Primary Language: Hong Konger (06/13/2016 17:52:Christine Henderson RN) Communication Barrier(s): None (06/13/2016 17:52:Armida Roberts RN) DEMOGRAPHICS Address: [address] [place] [id number] (06/13/2016 17:32:QS system process) Zipcode: [address] (06/13/2016 17:32:QS system process) Home (06/13/2016 17:32:QS system process) N: [id number] (06/13/2016 17:32:QS system process) Next of Kin Name: TOMMIE HUNT (06/13/2016 17:32:QS system process) Next of Kin (06/13/2016 17:32:QS system process) Next of Kin Relationship: SPO (06/13/2016 17:32:QS system process) Date of : 1990 (06/13/2016 17:32:QS system process) Marital Status: (06/13/2016 17:32:QS system process) Sex: Female (06/13/2016 17:32:QS system process) Race: (06/13/2016 17:32:QS system process) Ethnicity: Non- or (06/13/2016 17:32:QS system process) Caodaism: None (06/13/2016 17:32:QS system process) DRUG AND ALCOHOL USE Alcohol: No (06/13/2016 17:52:Christine Henderson RN) Cigarettes: Never Smoker. [id number] (06/13/2016 17:52:Christine Henderson RN) Marijuana: No (06/13/2016 17:52:Christine Henderson RN) Cocaine: No (06/13/2016 17:52:Christine Henderson RN) Other Illicit Drugs: No (06/13/2016 17:52:Christine Henderson RN) VACCINE HISTORY Influenza Vaccine: Yes (06/13/2016 17:52:Christine Henderson RN) Tdap Vaccine: No (06/13/2016 17:52:Christine Henderson RN) Software Test Specialist: Naval (06/13/2016 17:52:Christine Henderson RN) Feeding Preference: Formula (06/13/2016 17:52:Christine Henderson RN) Benefit of Breast Feed Discussed: Yes (06/13/2016 17:52:Christine Henderson RN) Classes Attended: No (06/13/2016 17:52:Christine Henderson RN) Tubal Ligation: No (06/13/2016 17:52:Christine Henderson RN) Tubal Authorization Signed: N/A (06/13/2016 17:52:Christine Henderson RN) Consent: N/A (06/13/2016 17:52:Christine Henderson RN) Consent Signed: N/A (06/13/2016 17:52:Christine Henderson RN) Pain Management Plans: Natural (06/13/2016 17:52:Christine Henderson RN) Support Person: Tommie Hunt (06/13/2016 17:52:Christine Henderson RN) Support Person Relationship: (06/13/2016 17:52:Christine Henderson RN) Cultural/Spritual Practice: No (06/13/2016 17:52:Christine Henderson RN) Spir/Cult Dietary Needs: No (06/13/2016 17:52:Christine Henderson RN) LIVING SITUATION/DISCHARGE PLAN Living Arrangements: House (06/13/2016 17:52:Christine Henderson RN) Adequate Access to:: Electric; Heat; Refrigeration; Plumbing/Running water; Phone; Transportation (06/13/2016 17:52:Christine Henderson RN) WIC Program: Yes (06/13/2016 17:52:Christine Henderson RN) Discharge Refinery Operator Helper Cracking Unit Person: Tommie Hunt (06/13/2016 17:52:Christine Henderson RN) Person to Help after Discharge: Tommie Hunt (06/13/2016 17:52:Christine Henderson RN) Car Seat for Discharge: Yes (06/13/2016 17:52:Christine Henderson RN) Adoption Requested: No (06/13/2016 17:52:Christine Henderson RN) Pt Contact w/infant Post : N/A (06/13/2016 17:52:Christine Henderson RN) LABS Blood Type: A Positive (06/13/2016 17:52:Christine Henderson RN) Antibody Screen: neg (06/13/2016 17:52:Christine Henderson RN) Hemoglobin: 12.9 (06/13/2016 18:28:QS system process) Hematocrit: 38.6 (06/13/2016 18:28:QS system process) MCV: 96 (06/13/2016 18:28:QS system process) Group Beta Strep: negative (06/13/2016 17:52:Christine Henderson RN) Gonorrhea: Negative (06/13/2016 17:52:Christine Henderson RN) Chlamydia: Negative (06/13/2016 17:52:Christine Henderson RN) RPR/VDRL: Nonreactive (06/13/2016 17:52:Christine Henderson RN) Hepatitis B: Negative (06/13/2016 17:52:Christine Henderson RN) Rubella: Immune (06/13/2016 17:52:Christine Henderson RN) OB/PREVIOUS HISTORY Previous Procedures: Ultrasound; NST (06/13/2016 17:52:Christine Henderson RN) Current Procedures: Ultrasound; NST; Doppler Flow Study (06/13/2016 17:52:Christine Henderson RN) History of Previous : No (06/13/2016 17:52:Christine Henderson RN) History of Gestational Diabetes: No (06/13/2016 17:52:Christine Henderson RN) History of PIH: No (06/13/2016 17:52:Christine Henderson RN) History of Incompetent Cervix: No (06/13/2016 17:52:Christine Henderson RN) History of Placenta Previa/Abrup: No (06/13/2016 17:52:Christine Henderson RN) History of Macrosomia: No (06/13/2016 17:52:Christine Henedrson RN) History of IUGR: Yes (06/13/2016 17:52:Christine Henderson RN) History of Hemorrhage: No (06/13/2016 17:52:Christine Henderson RN) History of Loss/Stillborn: No (06/13/2016 17:52:Christine Henderson RN) History of : No (06/13/2016 17:52:Christine Henderson RN) History of D (Rh) Sensitization: No (06/13/2016 17:52:Christine Henderson RN) History Recurrent Loss/Stillborn: No (06/13/2016 17:52:Christine Henderson RN) History Depression/PP Depression: No (06/13/2016 17:52:Christine Henderson RN) History of Uterine Anomaly/SENAIT: No (06/13/2016 17:52:Christine Henderson RN) History of Infertility: No (06/13/2016 17:52:Christine Henderson RN) History of ART Treatment: No (06/13/2016 17:52:Christine Henderson RN) History of SENAIT: No (06/13/2016 17:52:Christine Henderson RN) Comments Obstetrical History: G1: Male 6#8oz vaginal (06/13/2016 17:52:Christine Henderson RN) MEDICAL HISTORY Med Hx Diabetes: No (06/13/2016 17:52:Christine Henderson RN) Med Hx Hypertension: No (06/13/2016 17:52:Christine Henderson RN) Med Hx Heart Disease: No (06/13/2016 17:52:Christine Henderson RN) Med Hx Autoimmune Disorder: No (06/13/2016 17:52:Christine Henderson RN) Med Hx Kidney Disease/UTI: No (06/13/2016 17:52:Christine Henderson RN) Med Hx Neurologic/Epilepsy: Yes (06/13/2016 17:52:Christine Henderson RN) Med Hx Psychiatric Disorders: No (06/13/2016 17:52:Christine Henderson RN) Med Hx Hepatitis/Liver Disease: No (06/13/2016 17:52:Christine Henderson RN) Med Hx Varicosities/Phlebitis: No (06/13/2016 17:52:Christine Henderson RN) Med Hx Thyroid Dysfunction: No (06/13/2016 17:52:Christine Henderson RN) Med Hx Trauma/Violence: No (06/13/2016 17:52:Christine Henderson RN) Med Hx Blood Transfusion: No (06/13/2016 17:52:Christine Henderson RN) Med Hx Pulmonary (Asthma,TB): No (06/13/2016 17:52:Christine Henderson RN) Med Hx Breast: No (06/13/2016 17:52:Christine Henderson RN) Med Hx CLOTHING SORTER Surgery: No (06/13/2016 17:52:Christine Henderson RN) Med Hx Hospitalization/Surgery: Yes (06/13/2016 17:52:Christine Henderson RN) Med Hx Anesthetic Complications: No (06/13/2016 17:52:Christine Henderson RN) Med Hx Abnormal Pap Smear: No (06/13/2016 17:52:Christine Henderson RN) Other Medical Diseases: Yes (06/13/2016 17:52:Christine Henderson RN) Med Hx Significant Family Hx: No (06/13/2016 17:52:Christine Henderson RN) Details of Med/Surg Hx: migraine, spinal fusion 2007. chrones and ulcerative colitis (06/13/2016 17:52:Ne Henderson RN) INFECTIOUS HISTORY Inf Hx Gonorrhea: No (06/13/2016 17:52:Christine Henderson RN) Inf Hx Chlamydia: No (06/13/2016 17:52:Christine Henderson RN) Inf Hx Syphilis: No (06/13/2016 17:52:Christine Henderson RN) Inf Hx HIV/AIDS: No (06/13/2016 17:52:Christine Henderson RN) Inf Hx Human Papilloma Virus: No (06/13/2016 17:52:Christine Henderson RN) Inf Hx Pt/Partner Genital Herpes: No (06/13/2016 17:52:Christine Henderson RN) Inf Hx Tuberculosis/Exposure: No (06/13/2016 17:52:Christine Henderson RN) Inf Hx Hepatitis B,C: No (06/13/2016 17:52:Christine Henderson RN) Inf Hx Rash or Viral Illness: No (06/13/2016 17:52:Christine Henderson RN) GENETIC HISTORY Gen Hx Age >=35 at MISSAEL: No (06/13/2016 17:52:Christine Henderson RN) Gen Hx Thalassemia: No (06/13/2016 17:52:Christine Henderson RN) Gen Hx Congenital Heart Defect: No (06/13/2016 17:52:Christine Henderson RN) Gen Hx Neural Tube Defect: No (06/13/2016 17:52:Christine Henderson RN) Gen Hx Down's Syndrome: No (06/13/2016 17:52:Christine Henderson RN) Gen Hx Dougie-Sachs: No (06/13/2016 17:52:Christine Henderson RN) Gen Hx Carrington: No (06/13/2016 17:52:Christine Henderson RN) Gen Hx Familial Dysautonomia: No (06/13/2016 17:52:Christine Henderson RN) Gen Hx Sickle Cell Disease/Trait: No (06/13/2016 17:52:Christine Henderson RN) Gen Hx Hemophilia/Blood Disorder: No (06/13/2016 17:52:Christine Henderson RN) Gen Hx Muscular Dystrophy: No (06/13/2016 17:52:Christine Henderson RN) Gen Hx Cystic Fibrosis: No (06/13/2016 17:52:Christine Henderson RN) Gen Hx [place] Chorea: No (06/13/2016 17:52:Christine Henderson RN) Gen Hx Mental Retardation/Autism: No (06/13/2016 17:52:Christine Henderson RN) Gen Hx Tested for Fragile X: No (06/13/2016 17:52:Christine Henderson RN) Gen Hx Other Inher/Chromosomal: No (06/13/2016 17:52:Christine Henderson RN) Gen Hx Maternal Metabolic DO: No (06/13/2016 17:52:Christine Henderson RN) Gen Hx Pt Father or FOB Defect: No (06/13/2016 17:52:Christine Henderson RN) Gen Hx Other Genetic History: No (06/13/2016 17:52:Christine Henderson RN) Gen Hx Drugs/Meds since LMP: No (06/13/2016 17:52:Christine Henderson RN)
--- NOTE | 2016-06-16 06:15 | L&D Care Plan ---
LD CARE PLANS Datetime Report Generated by CPN: 06/16/2016 06:15 Datetime: 06/13/2016 19:09 Pain State: Risk For (Christine Henderson RN) Related To: Labor and Delivery Process (Christine Henderson RN) Goal(s): Patients Pain will be Assessed and Managed; Patient will Verbalize Adequate Relief of Pain or the Ability to [place] with Current Pain (Christine Henderson RN) Interventions: Assess Pain Severity on Scale of 0 (None) to 5 (Severe); Assess Type, Location and Intensity of Pain Each Time Client Reports Discomfort and Notify Provider if Unusal Pain Develops; Encourage Proper Breathing and Relaxation Techniques; Offer Alternatives Such as Repositioning, Calm Environment, Massages, Diversional Activities, Ice Pack, Splinting, and Ambulation; Administer Analgesics as Ordered; Assist with Epidural Placement as Appropriate; Evaluate Therapeutic Effectiveness of Medication and Treatments (Christine Henderson RN) Outcome: Patient will Report Absence or Relief of Pain Consistent with Established Pain Goal (Christine Henderson RN) Status: Ongoing (Christine Henderson RN) Outcome: Patient will have a Decrease in Signs and Symptoms of Discomfort (Christine Henderson RN) Status: Ongoing (Christine Henderson RN) Outcome: Pain will be Controlled During Procedures (Christine Henderson RN) Status: Ongoing (Christine Henderson RN) Anxiety State: Risk For (Christine Henderson RN) Related To: Labor and Delivery Process (Christine Henderson RN) Goal(s): Patient will have Decreased Anxiety and be able to Function at Acceptable Levels (Christine Henderson RN) Interventions: Assess Verbal and Nonverbal Behavioral Indicators of Anxiety; Assist Patient to Identify and Verbalize Symptoms of Anxiety; Identify and Demonstrate Techniques to Control Anxiety; Assist Patient with Coping Mechanisms to Manage Anxiety; Provide Theraputic Touch for the Patient; Explain to Patient, Using a Calm Reassuring Approach and Nonmedical Terms, All Activities, Procedures, and Concerns; Instruct Patient and Family about Post Discharge Care, Limitations, Symptoms to Report and Resources Available (Christine Henderson RN) Outcome: Patient will Identify, Verbalize and Demonstrate Techniques to Control Anxiety (Christine Henderson RN) Status: Ongoing (Christine Henderson RN) Outcome: Patient's Posture, Facial Expressions, Gestures and Activity Level will Reflect Decreased Anxiety (Christine Henderson RN) Status: Ongoing (Christine Henderson RN) Outcome: Patient will Verbalize a Sense of Control and/or Acceptance of the Situation (Christine Henderson RN) Status: Ongoing (Christine Henderson RN) Outcome: Patient will Identify and Utilize Support Person (Christine Henderson RN) Status: Ongoing (Christine Henderson RN) Knowledge Deficit State: Risk For (Christine Henderson RN) Related To: Labor and Delivery Process (Christine Henderson RN) Goal(s): Patient will Accurately Verbalize Understanding of Plan of Care and Treatment; Patient and Family will Accurately Verbalize Understanding of the Disease Process (Christine Henderson RN) Interventions: Assess Motivation and Willingness of Patient/Family to Learn; Assess Preferred Learning Mode: One to One Instruction, Reading, Videos, Group Discussion or Demonstration; Assess Barriers to Learning: Pain, Emotional State, Language Barrier, Cognitive Impairment, Visual or Hearing Deficits; Assess Patient and Family Knowledge of Disease Process, Medications and Treatment; Discuss Therapy and/or Treatment Options, Describe Rationale Behind Management, Therapy and Treatment Recommendations; Instruct Patient and Family on Signs and Symptoms to Report; Instruct Patient and Family on Medication Effects and Side Effects; Provide Appropriate and Timely Education Using Multiple Techniques; Provide Patient and Family with Support Group Information and Resources; Give Clear and Thorough Explanations and Demonstrations (Christine Henderson RN) Outcome: Patient and Family will Verbalize Understanding of Condition, Treatment and Signs and Symptoms to Report (Christine Henderson RN) Status: Ongoing (Christine Henderson RN) Outcome: Patient will Identify Perceived Learning Needs and Express Motivation to Learn (Christine Henderson RN) Status: Ongoing (Christine Henderson RN) Outcome: Patient will Verbalize Understanding of Desired Content, and/or Performs Desired Skill Prior to Discharge (Christine Henderson RN) Status: Ongoing (Christine Henderson RN) Infection State: Risk For (Christine Henderson RN) Related To: Prolonged Labor or Induction (Christine Henderson RN) Goal(s): The Patient will be Free of Infection, Vital Signs Stable and Lab Work within Normal Parameters (Christine Henderson RN) Interventions: Instruct and Reinforce Proper Handwashing, Hygiene, and Care Techniques to Patient and Family; Monitor Vital Signs; Monitor Patient for the Following Signs of Infection: Fever, Abdominal Tenderness, Unusual Discharge; Monitor Aminiotic Fluid, Urine and Lochia for Color and Odor; Observe Wounds, Incisions and Invasive Line Sites for Redness, Drainage and Edema; Assess IV Sites per Hospital Policy; Monitor Lab and Test Results and Notify Provider of Abnormal Findings; Assess Nutritional Status and Promote Good Nutrition (Christine Henderson RN) Outcome: Patient will Remain Free of Infection (Christine Henderson RN) Status: Ongoing (Christine Henderson RN) Outcome: Infection will be Recognized Early to Allow for Prompt Treatment (Christine Henderson RN) Status: Ongoing (Christine Henderson RN) Outcome: Patient will have Vital Signs Within Expected Range (Christine Henderson RN) Status: Ongoing (Christine Henderson RN) Fluid Volume State: Risk For (Christine Henderson RN) Related To: Prolonged Labor or Induction (Christine Henderson RN) Goal(s): Patient will Achieve and Maintain a Balanced Fluid Volume Status; Hemodynamically Stable (Christine Henderson RN) Interventions: Monitor Vital Signs; Auscultate Breath Sounds; Monitor Patient for Skin Turgor, Mucous Membranes, Dry Skin, Weakness, Headaches and Confusion; Provide Oral Fluids as Ordered; Initiate and Maintain Intravenous Fluids as Ordered; Monitor Intake and Output as Indicated Per Patient Status; Accurately Measure Blood Loss; Monitor Lab and Test Results as Obtained and Notify Provider of Abnormal Findings; Monitor Patient's Weight (Christine Henderson RN) Outcome: Patient will have Clear Lung Sounds (Christine Henderosn RN) Status: Ongoing (Christine Henderson RN) Outcome: Patient will have Vital Signs within Expected Range (Christine Henderson RN) Status: Ongoing (Christine Henderson RN) Outcome: Urine Output will be within Expected Range (Christine Henderson RN) Status: Ongoing (Christine Henderson RN) Outcome: Patient will have Minimal Generalized or Upper Extremity Edema (Christine Henderson RN) Status: Ongoing (Christine Henderson RN) Injury State: Not Applicable (Christine Henderson RN) Related To: Labor and Delivery Process (Christine Henderson RN) Goal(s): Patient will Remain Free from Injury (Christine Henderson RN) Interventions: Monitoring as per Hospital Protocol; Assess Neurological Status; Perform Risk Assessment of Patients with Induction and ; Perform Fall Risk Assessment and Prevention per Hospital Protocol; Perform DVT Risk Assessment and Prophylaxis per Hospital Protocol; Ensure that Oxygen, Suction, and Resuscitation Medications and Equipment are Readily Available; Confirm Patient ID Prior to Procedure(s) and Medication Administration per Hospital Policy (Christine Henderson RN) Outcome: Successful Fall Risk Prevention (Christine Henderson RN) Status: Ongoing (Christine Henderson RN) Outcome: Patient will Deliver Infant without Adverse [place] (Christine Henderson RN) Status: Ongoing (Christine Henderson RN) Outcome: Patient's Neurological Status will Remain Stable (Christine Henderson RN) Status: Ongoing (Christine Henderson RN)
[2016-06-16 07:35] LABS: HEMATOCRIT 32.6 % (36.0-47.0); HGB HCT DIFFERENCE 0.4; MEAN CORPUSCULAR HEMOGLOBIN 32.2 pg (27.0-33.4); MEAN CORPUSCULAR HGB CONC 33.6 g/dL (32.0-36.0); MEAN CORPUSCULAR VOLUME 96 fl (80-97); RED BLOOD COUNT 3.41 10^6/uL (3.72-5.28); RED CELL DISTRIBUTION WIDTH 13.5 % (11.5-14.0); WHITE BLOOD COUNT 12.2 10^3/uL (4.0-10.5)
[2016-06-16] MEDS: DOCUSATE SODIUM 100 MG CAPSULE PO SCH ×2 (09:44→17:56)
[2016-06-16] MEDS ORDERED: BISACODYL 10 MG SUPP.RECT PR PRN (09:48)
[2016-06-16] MEDS ORDERED: SENNOSIDES/DOCUSATE 8.6-50 MG 1 EACH TABLET PO SCH (10:00)
[2016-06-16] MEDS ORDERED: PRENATAL VITAMIN W-O CA NO5/FE FUMARATE/FA CAPSULE PO SCH (10:00)
[2016-06-16 10:14] VITALS: BP 110/68
[2016-06-16] MEDS: FERROUS SULFATE 325 MG TABLET PO SCH ×2 (10:39→17:56)
--- NOTE | 2016-06-16 12:06 | PDOC DISCHARGE SUMMARY ---
Final Diagnosis Discharge Date: 06/16/16 - desires early discharge this afternoon - Final Diagnosis (1) Vaginal delivery Is this a current diagnosis for this admission?: Yes (2) Term delivered Is this a current diagnosis for this admission?: Yes Discharge Data - Discharge Medication Home Medications: Pnv with Ca,No.72/Iron/FA [Pnv Plus Multivit Tab] 1 each PO DAILY 06/13 Ibuprofen [Motrin 800 mg Tablet] 800 mg PO Q8HP PRN #90 tablet 06/16/16 Reason(s) for Admission: Induction of Labor, Status - oligohydramnios and Intrauterine Growth Restriction Procedures: NST, Ultrasound Intrapartum Procedure(s): Spontaneous Vaginal Delivery - [place] Data Baby 1 Male at 1 minute: 8 at 5 minutes: 9 Weight: 2710 kg Home with Mother: Yes - pending bili labs this afternoon Complications: No - Diagnosis Test Laboratory: Temp Pulse Resp BP Pulse Ox 97.5 F 68 16 106/68 100 06/16/16 07:40 06/16/16 07:40 06/16/16 07:40 06/16/16 07:40 06/16/16 07:40 06/13/16 06/13/16 06/16/16 18:05 18:28 07:05 RBC 4.04 3.41 L Hgb 12.9 11.0 L Hct 38.6 32.6 L Urine Opiates Screen NEGATIVE - Discharge information/Instructions Discharge Activity: Activity As Tolerated, Balance Activity w/Rest, No Lifting Over 10 Pounds, No Lifting/Push/Pulling, Pelvic Rest, Slowly Increase Activity, No tub bath Discharge Diet: Regular Disposition: HOME, SELF-CARE [facility] in: 4, Weeks Physical Exam (OB) Vital Signs: Temp Pulse Resp BP Pulse Ox 97.5 F 68 16 106/68 100 06/16/16 07:40 06/16/16 07:40 06/16/16 07:40 06/16/16 07:40 06/16/16 07:40 - General General Appearance: Appears well - desires IUD In distress: None - PIH/Pre-Eclampsia Headache: Absent Epigastric Pain: No Visual Changes: No - Episiotomy/Laceration Site Condition: N/A - Lochia Lochia Amount: Scant < 10 ml Lochia Color: Rubra/Red - Abdomen Description: Soft, Round Hernia Present: No Fundal Description: Firm, Midline Fundal Height: u/u - u/2 - Respiratory Respiratory Status: No respiratory distress - Extremities Upper extremity: Normal inspection Lower extremities: Normal inspection - Neurological Cognition: Normal Orientation: AAOx4 - Psychological Associated symptoms: Normal affect, Normal mood - bonding well with baby, helpful family at bedside.
--- NOTE | 2016-06-26 09:19 | Delivery Summary ---
Del Sum A-C Datetime Report Generated by CPN: 06/26/2016 09:19 ADMISSION DATA Chief Complaint: Scheduled Induction of Labor Indication for Induction: IUGR Indication for Induction Comment: rising s/d ratio Admission Impression: Term, Intrauterine ; Intact Membranes; Induction of Labor DELIVERY PERSONNEL Delivery Doctor:: Arina Roger MD Labor and Delivery Nurse:: Armida Roberts RNlock tender Nurse:: Kasandra Calvo RN Student Observers:: SN Luda Joshi SN Fire Warden/PIPE ASSEMBLY WORKER: Anay Roberts, ASSISTANT AUTO CENTER MANAGER MATERNAL INFORMATION Delivery Anesthesia: None Medications After Delivery: Pitocin Drip 20 Units/1000ml NSS Estimated Blood Loss (ml): 100 Maternal Complications: Other Other Maternal Complications: Crohn's Disease Provider Comments: Pt had prolonged induction. was able to get delivery completed with induction with mike bulb and pitocin. No complications with delivery. placenta sent to pathology LABOR SUMMARY EDC: 06/17/2016 00:00 No. Babies in Womb: 0 Attempted: No Labor Anesthesia: None LABOR INFORMATION Reason for Induction: Intrauterine Growth Retardation; Oligohydramnios Onset of Labor: 06/15/2016 12:43 Complete Dilatation: 06/15/2016 14:01 Cervical Ripening Agents: Cervidil Other Ripening Agents: cervidil x 2 and mike bulb Oxytocin: Induction Group B Beta Strep: negative Antibiotics # of Doses: 0 Steroids Given: None Reason Steroids Not Administered: Not Applicable MEMBRANES Membranes Rupture Method: Spontaneous Rupture of Membranes: 06/15/2016 12:43 Length of Rupture (hr): 1.50 Amniotic Fluid Color: Clear Amniotic Fluid Amount: Small Amniotic Fluid Odor: Normal STAGES OF LABOR Stage 1 hr: 1 Stage 1 min: 18 Stage 2 hr: 0 Stage 2 min: 12 Stage 3 hr: 0 Stage 3 min: 4 Total Time in Labor hr: 1 Total Time in Labor min: 34 VAGINAL DELIVERY Laceration Extension: N/A Laceration Type: None CSECTION DELIVERY Primary Indication: N/A Secondary Indication: N/A CSection Incidence: N/A Labor: N/A Elective: N/A CSection Incision: N/A BABY A INFORMATION Infant Delivery Date/Time: 06/15/2016 14:13 Method of Delivery: Vaginal Born in Route : No : N/A Forceps: N/A Vacuum Extraction: N/A Shoulder Dystocia : No PRESENTATION/POSITION BABY A Presentation: Cephalic Cephalic Presentation: Vertex Vertex Position: Left Occipital Anterior Breech Presentation: N/A PLACENTA INFORMATION BABY A Placenta Delivery Time : 06/15/2016 14:17 Placenta Method of Delivery: Spontaneous Placenta Status: Delivered SCORES BABY A Heart Rate 1 min: >100 bpm Resp Effort 1 min: Good Cry Reflex Irritability 1 min: Cough or Sneeze or Pulls Away Muscle Tone 1 min: Active Motion Color 1 min: Blue/Pale Resuscitation Effort 1 min: Tactile Stimulation SCORE 1 MIN: 8 Heart Rate 5 min: >100 bpm Resp Effort 5 min: Good Cry Reflex Irritability 5 min: Cough or Sneeze or Pulls Away Muscle Tone 5 min: Active Motion Color 5 min: Body [place], Extremities Blue Resuscitation Effort 5 min: Tactile Stimulation SCORE 5 MIN: 9 INFANT INFORMATION BABY A Gestational Age at Delivery: 39.5 Gestational Status: Full Term- 39- 40.6 Weeks Outcome : Liveborn Condition : Stable Infant Sex: Male IDENTIFICATION BABY A Infant Verification Date/Time: 06/15/2016 14:55 ID Band Number: [id number] Mother's Name Verified: Yes Infant RN Verifying : H. Alejandra, RN and L. Calvo WEIGHT/LENGTH BABY A Infant Birthweight (gm): 2710 Weight (lb): 6 Infant Weight (oz): 0 Infant Length (in): 18.75 Length (cm): 47.63 CORD INFORMATION BABY A No. Cord Vessels: 3 Nuchal Cord : N/A Infant Suction: Mouth; Nose ASSESSMENT BABY A Infant Complications: None Physical Findings at Delivery: Within Normal Limits Infant Respirations: Appears Normal Deep Submergence Vehicle Operator/ALS Called : No Infant Care By: Devorah Calvo, RN Transferred To: Remains with Mother BABY B INFORMATION : N/A SIGNATURES Signature: with User ID: [email or web address]
== END 2016-06-16 18:34 | disposition home or self-care (01) | DRG 775 ==
LOC: LR 17:31 → 2S 06-15 16:33
PROVIDERS: ADMIT Obstetrics & Gynecology; ATTEND Obstetrics & Gynecology
PROC: 3E0P7GC Introduction of Other Therapeutic Substance into Female Reproductive, Via Natural or Artificial Opening (ICD-10-PCS; 2016-06-13)
PROC: 4A1HXCZ Monitoring of Products of Conception, Cardiac Rate, External Approach (ICD-10-PCS; 2016-06-13)
PROC: 10E0XZZ Delivery of Products of Conception, External Approach (ICD-10-PCS; principal; 2016-06-15)
DX: O41.03X0 Oligohydramnios, third trimester, not applicable or unspecified (principal); K50.90 Crohn's disease, unspecified, without complications; O36.5930 Maternal care for other known or suspected poor fetal growth, third trimester, not applicable or unspecified; O99.62 Diseases of the digestive system complicating childbirth; Z3A.39 39 weeks gestation of pregnancy; Z37.0 Single live birth
CPT/HCPCS: 36415; 80307; 81005; 85025; 85027; 86592; 86850; 86900; 86901; 88307; J2590; J3010; J3105; J3490; S0119